=== PATIENT | male | born 1950 | race Two or more races ===

== ENCOUNTER 2019-07-07 11:55 | Inpatient (IN) | payer MEDICAID ==
[~2019-07-07] VITALS: Ht 149.9 cm; Wt 59.9 kg
[2019-07-07 12:48] LABS: HEMATOCRIT. 37.7 % (42.0-52.0); HEMOGLOBIN. 12.3 g/dL (14.0-18.0); MEAN CORPUSCULAR HEMOGLOBIN 26.4 pg (28.0-32.0); MEAN PLATELET VOLUME 7.4 fl (7.4-10.4); PLATELET 191 x1000/uL (130-400); RED BLOOD CELL COUNT 4.65 mill/uL (4.7-6.1); RED CELL DISTRIBUTION WIDTH 18.5 % (11.6-14.6)
[2019-07-07 12:56] LABS: CHLORIDE 99 mEq/L (98-107)
[2019-07-07 13:38] LABS: NUCLEATED RED BLOOD CELLS 1 /100 WBC
[2019-07-07 13:39] LABS: PLATELET ESTIMATE NORMAL
[2019-07-07] MEDS ORDERED: IPRATROPIUM BROMIDE (0.02%) 0.5MG/2.5ML NEB HHN STA (13:57)
[2019-07-07] MEDS ORDERED: ALBUTEROL (0.083%) 2.5MG/3ML NEB HHN STA (13:57)
[2019-07-07] MEDS ORDERED: METHYLPREDNISOLONE SOD SUCC 125 MG/2 ML VIAL IV STA (13:57)
[2019-07-07] MEDS ORDERED: IPRATROPIUM BROMIDE (0.02%) 0.5MG/2.5ML NEB ONE (14:41)
[2019-07-07] MEDS ORDERED: ALBUTEROL (0.5%) 2.5MG/0.5ML NEB HHN ONE (14:41)
[2019-07-07] MEDS ORDERED: CLONIDINE 0.1MG TABLET PO PRN (15:30)
[2019-07-07] MEDS ORDERED: METHYLPREDNISOLONE SOD SUCC 125 MG/2 ML VIAL IV SCH ×2 (15:30)
[2019-07-07] MEDS ORDERED: IPRATROPIUM/ALBUTEROL 0.5-3(2.5)MG/3ML NEB HHN PRN (15:30)
[2019-07-07] MEDS ORDERED: ONDANSETRON HCL 4MG/2ML INJ IV PRN (15:30)
[2019-07-07] MEDS ORDERED: ACETAMINOPHEN 325MG TABLET PO PRN (15:30)
[2019-07-07] MEDS ORDERED: PIPERACILLIN/TAZ 3.375G PREMIX 50 ML IV SCH (15:35)
[2019-07-07 15:55] LABS: PHOSPHORUS 3.4 mg/dL (2.5-4.9)
[2019-07-07 17:00] VITALS: BP 105/71
[2019-07-07 18:20] LABS: HEPATITIS B SURFACE ANTIGEN NEGATIVE
[2019-07-07] MEDS ORDERED: SODIUM CHLORIDE 10% FOR INH 15ML VIAL NEB INH NR (18:30)
[2019-07-07] MEDS: PREDNISONE 20MG TABLET PO SCH (18:57)
[2019-07-07] MEDS: SODIUM CHLORIDE 0.9% 1,000 ML IV SCH (18:57)
[2019-07-07] MEDS: ENOXAPARIN 30MG/0.3ML SYR SUBCUT SCH (18:58)
[2019-07-07] MEDS ORDERED: AZITHROMYCIN 500 MG in DEXT 5% WATER 250 ML IV SCH (19:00)
[2019-07-07 19:50] LABS: HEPATITIS A AB IGM Equiv (NEGATIVE)
[2019-07-07 20:00] VITALS: BP 100/73
[2019-07-07] MEDS: IPRATROPIUM/ALBUTEROL 0.5-3(2.5)MG/3ML NEB HHN SCH (21:42)
[2019-07-07] MEDS: CEFEPIME 1,000 MG in DEXTROSE 5% WATER 50 ML IV SCH (21:46)
[2019-07-07 23:52] LABS: CLARITY URINE CLEAR (CLEAR); COLOR URINE YELLOW (YELLOW); KETONES URINE NEGATIVE (NEGATIVE); LEUKOCYTE ESTERASE URINE NEGATIVE (NEGATIVE); NITRITE URINE NEGATIVE (NEGATIVE); OCCULT BLOOD URINE NEGATIVE (NEGATIVE); PROTEIN URINE 1+ (NEGATIVE); SPECIFIC GRAVITY URINE 1.021 (1.005-1.030); UROBILINOGEN URINE 0.2 E.U./dL (0.2-1.0)
[2019-07-08] VITALS: BP 95/64
[2019-07-08] MEDS ORDERED: PIPERACILLIN/TAZ 3.375G PREMIX 50 ML IV SCH
[2019-07-08 00:35] LABS: *AMPHETAMINES SCREEN URINE NEGATIVE (NEGATIVE); *BARBITURATES SCREEN URINE NEGATIVE (NEGATIVE); *BENZODIAZEPINES SCREEN URINE NEGATIVE (NEGATIVE); *COCAINE SCREEN URINE NEGATIVE (NEGATIVE)
[2019-07-08 00:36] LABS: CANNABINOID URINE SCREEN NEGATIVE (NEGATIVE); METHADONE URINE SCREEN NEGATIVE (NEGATIVE); OPIATES URINE SCREEN PRESUMTIVE POSITIVE (NEGATIVE); PHENCYCLIDINE URINE SCREEN NEGATIVE (NEGATIVE)
[2019-07-08] MEDS: IPRATROPIUM/ALBUTEROL 0.5-3(2.5)MG/3ML NEB HHN SCH ×5 (01:07→20:43)
[2019-07-08] MEDS ORDERED: IPRA3AMP31 NEB (04:31)
[2019-07-08] MEDS ORDERED: BISA10SU62 RC (04:31)
[2019-07-08] MEDS ORDERED: TOPUD PO (04:31)
[2019-07-08] MEDS ORDERED: DILT30TA38 PO (04:31)
[2019-07-08] MEDS ORDERED: GUAI600T26 MT (04:31)
[2019-07-08] MEDS ORDERED: FAMO-135 PO (04:31)
[2019-07-08] MEDS ORDERED: APIX5TAB MT (04:31)
[2019-07-08] MEDS ORDERED: HYDR-3281 PO (04:31)
[2019-07-08] MEDS ORDERED: MELA5TAB19 MT (04:31)
[2019-07-08] MEDS ORDERED: MOM PO (04:31)
[2019-07-08] MEDS ORDERED: ZOLP5TAB2 MT (06:11)
[2019-07-08] MEDS ORDERED: LORA-249 MT (06:11)
[2019-07-08] MEDS ORDERED: MUPI1OIN4 NAS (06:11)
[2019-07-08] MEDS ORDERED: METH40VI35 IJ (06:11)
[2019-07-08] MEDS: SODIUM CHLORIDE 0.9% 1,000 ML IV SCH (06:50)
[2019-07-08 06:56] LABS: PROTHROMBIN TIME 10.7 sec (9.6-11.0)
[2019-07-08 07:07] LABS: HEMATOCRIT. 33.4 % (42.0-52.0); HEMOGLOBIN. 10.6 g/dL (14.0-18.0); MEAN CORPUSCULAR HEMOGLOBIN 25.8 pg (28.0-32.0); MEAN CORPUSCULAR VOLUME 81.6 fL (80.0-94.0); MEAN PLATELET VOLUME 7.8 fl (7.4-10.4); PLATELET 200 x1000/uL (130-400); RED BLOOD CELL COUNT 4.09 mill/uL (4.7-6.1); RED CELL DISTRIBUTION WIDTH 18.7 % (11.6-14.6)
[2019-07-08 07:09] LABS: CHLORIDE 101 mEq/L (98-107)
[2019-07-08 07:16] LABS: LDL CHOLESTEROL 53 mg/dL (5-100)
[2019-07-08 07:18] LABS: HDL CHOLESTEROL 52 mg/dL (40-59)
[2019-07-08] MEDS: ACETYLCYSTEINE 100MG/ML 10% VIAL 4ML INH SCH ×2 (08:03→14:00)
[2019-07-08] MEDS: PREDNISONE 20MG TABLET PO SCH ×2 (08:09→18:22)
[2019-07-08] MEDS: CEFEPIME 1,000 MG in DEXTROSE 5% WATER 50 ML IV SCH ×2 (08:09→21:05)
[2019-07-08 08:23] VITALS: BP 116/74
[2019-07-08 11:41] VITALS: BP 104/64
[2019-07-08 11:41] LABS: PLATELET ESTIMATE NORMAL
[2019-07-08] MEDS ORDERED: DEXTROSE 50% WATER 50ML SYRINGE IV PRN (13:45)
[2019-07-08 16:03] VITALS: BP 112/72
[2019-07-08] MEDS: AZITHROMYCIN 500 MG in DEXT 5% WATER 250 ML IV SCH (16:28)
[2019-07-08] MEDS: BLOOD SUGAR DIAGNOSTIC STRIP TEST SCH ×2 (18:17→21:17)
[2019-07-08] MEDS: ENOXAPARIN 30MG/0.3ML SYR SUBCUT SCH (18:21)
[2019-07-08] MEDS: INSULIN LISPRO 100 UNITS/ML SUBCUT SCH ×2 (18:23→21:33)
[2019-07-08 20:00] VITALS: BP 114/65
[2019-07-09] VITALS: BP 101/65
[2019-07-09] MEDS: ACETYLCYSTEINE 100MG/ML 10% VIAL 4ML INH SCH ×2 (00:33→14:45)
[2019-07-09] MEDS: IPRATROPIUM/ALBUTEROL 0.5-3(2.5)MG/3ML NEB HHN SCH ×4 (01:07→21:37)
[2019-07-09 04:00] VITALS: BP 107/72
[2019-07-09] MEDS: BLOOD SUGAR DIAGNOSTIC STRIP TEST SCH ×4 (07:04→21:00)
[2019-07-09] MEDS: INSULIN LISPRO 100 UNITS/ML SUBCUT SCH ×4 (07:05→22:04)
[2019-07-09 07:11] LABS: HIV SCREEN 4G Non Reactive (Non Reactive)
[2019-07-09 08:00] VITALS: BP 116/74
[2019-07-09] MEDS: PREDNISONE 20MG TABLET PO SCH ×2 (08:18→17:30)
[2019-07-09] MEDS: CEFEPIME 1,000 MG in DEXTROSE 5% WATER 50 ML IV SCH ×2 (08:18→22:03)
[2019-07-09] MEDS: SODIUM CHLORIDE 0.9% 1,000 ML IV SCH ×2 (09:30→22:55)
[2019-07-09 12:00] VITALS: BP 127/85
[2019-07-09] MEDS: AZITHROMYCIN 500 MG in DEXT 5% WATER 250 ML IV SCH (15:55)
[2019-07-09 16:00] VITALS: BP 119/73
[2019-07-09] MEDS: ENOXAPARIN 30MG/0.3ML SYR SUBCUT SCH (17:30)
[2019-07-09 20:00] VITALS: BP 147/70
[2019-07-10] VITALS: BP 144/80
[2019-07-10] MEDS: ACETYLCYSTEINE 100MG/ML 10% VIAL 4ML INH SCH ×2 (01:14→22:38)
[2019-07-10] MEDS: IPRATROPIUM/ALBUTEROL 0.5-3(2.5)MG/3ML NEB HHN SCH ×4 (01:15→22:38)
[2019-07-10 04:00] VITALS: BP 150/71
[2019-07-10] MEDS: BLOOD SUGAR DIAGNOSTIC STRIP TEST SCH ×4 (07:29→21:00)
[2019-07-10] MEDS: INSULIN LISPRO 100 UNITS/ML SUBCUT SCH ×4 (07:30→22:47)
[2019-07-10 07:55] VITALS: BP 125/81
[2019-07-10] MEDS: FAMOTIDINE 20MG TABLET PO SCH (08:10)
[2019-07-10] MEDS: CEFEPIME 1,000 MG in DEXTROSE 5% WATER 50 ML IV SCH ×2 (08:10→22:19)
[2019-07-10] MEDS: PREDNISONE 20MG TABLET PO SCH ×2 (08:10→16:23)
[2019-07-10 11:25] LABS: CHLORIDE 102 mEq/L (98-107)
[2019-07-10 11:26] LABS: HEMATOCRIT. 35.2 % (42.0-52.0); HEMOGLOBIN. 11.6 g/dL (14.0-18.0); MEAN CORPUSCULAR HEMOGLOBIN 26.5 pg (28.0-32.0); MEAN CORPUSCULAR VOLUME 80.8 fL (80.0-94.0); MEAN PLATELET VOLUME 7.2 fl (7.4-10.4); PLATELET 287 x1000/uL (130-400); RED BLOOD CELL COUNT 4.35 mill/uL (4.7-6.1); RED CELL DISTRIBUTION WIDTH 18.5 % (11.6-14.6)
[2019-07-10 12:00] VITALS: BP 125/79
[2019-07-10] MEDS: SODIUM CHLORIDE 0.9% 1,000 ML IV SCH (12:10)
[2019-07-10 12:27] LABS: PLATELET ESTIMATE NORMAL
[2019-07-10 15:43] VITALS: BP 138/77
[2019-07-10] MEDS: AZITHROMYCIN 500 MG in DEXT 5% WATER 250 ML IV SCH (16:21)
[2019-07-10 20:00] VITALS: BP 120/70
[2019-07-10] MEDS: ENOXAPARIN 40MG/0.4ML SYR SUBCUT SCH (22:20)
[2019-07-11] VITALS: BP 131/85
[2019-07-11] MEDS: IPRATROPIUM/ALBUTEROL 0.5-3(2.5)MG/3ML NEB HHN SCH ×4 (03:24→21:19)
[2019-07-11 04:00] VITALS: BP 120/82
[2019-07-11 05:58] LABS: CHLORIDE 102 mEq/L (98-107)
[2019-07-11 06:03] LABS: BASOPHILS % 0.6 % (0.0-2.0); HEMATOCRIT. 34.4 % (42.0-52.0); HEMOGLOBIN. 11.2 g/dL (14.0-18.0); LYMPHOCYTES % 9.2 % (20.0-50.0); MEAN CORPUSCULAR HEMOGLOBIN 26.1 pg (28.0-32.0); MEAN CORPUSCULAR VOLUME 80.4 fL (80.0-94.0); MEAN PLATELET VOLUME 7.5 fl (7.4-10.4); MONOCYTES % 4.9 % (2.0-8.0); NEUTROPHILS % 85.3 % (40.0-76.0); PLATELET 297 x1000/uL (130-400); RED BLOOD CELL COUNT 4.28 mill/uL (4.7-6.1); RED CELL DISTRIBUTION WIDTH 18.4 % (11.6-14.6)
[2019-07-11] MEDS: BLOOD SUGAR DIAGNOSTIC STRIP TEST SCH ×3 (07:20→21:00)
[2019-07-11] MEDS: INSULIN LISPRO 100 UNITS/ML SUBCUT SCH ×5 (07:50→21:00)
[2019-07-11] MEDS: CEFEPIME 1,000 MG in DEXTROSE 5% WATER 50 ML IV SCH ×2 (08:14→21:27)
[2019-07-11] MEDS: PREDNISONE 20MG TABLET PO SCH (08:14)
[2019-07-11] MEDS: FAMOTIDINE 20MG TABLET PO SCH (08:14)
[2019-07-11 08:31] VITALS: BP 114/83
[2019-07-11] MEDS: ACETYLCYSTEINE 100MG/ML 10% VIAL 4ML INH SCH (09:28)
[2019-07-11 12:03] VITALS: BP 126/85
[2019-07-11 16:01] VITALS: BP 110/69
[2019-07-11] MEDS: AZITHROMYCIN 500 MG in DEXT 5% WATER 250 ML IV SCH (17:47)
[2019-07-11] MEDS: SODIUM CHLORIDE 0.9% 1,000 ML IV SCH ×2 (17:48→18:09)
[2019-07-11 20:00] VITALS: BP 117/75
[2019-07-11] MEDS ORDERED: MED4 MT (21:25)
[2019-07-11] MEDS ORDERED: GUAI-735 MT (21:25)
[2019-07-11] MEDS ORDERED: AMOX250S70 MT (21:25)
[2019-07-11] MEDS ORDERED: GUAI600T44 MT (21:26)
[2019-07-11] MEDS: GUAIFENESIN 600MG ER TABLET PO SCH (21:27)
[2019-07-11] MEDS: ENOXAPARIN 40MG/0.4ML SYR SUBCUT SCH (21:27)
[2019-07-12] VITALS: BP 107/64
[2019-07-12 04:00] VITALS: BP 111/70
[2019-07-12] MEDS: SODIUM CHLORIDE 0.9% 1,000 ML IV SCH ×2 (04:10→08:25)
[2019-07-12] MEDS: INSULIN LISPRO 100 UNITS/ML SUBCUT SCH ×2 (07:47→13:25)
[2019-07-12] MEDS: BLOOD SUGAR DIAGNOSTIC STRIP TEST SCH ×2 (07:47→12:20)
[2019-07-12 07:58] VITALS: BP 93/60
[2019-07-12] MEDS: CEFEPIME 1,000 MG in DEXTROSE 5% WATER 50 ML IV SCH (08:16)
[2019-07-12] MEDS: GUAIFENESIN 600MG ER TABLET PO SCH (08:17)
[2019-07-12] MEDS: FAMOTIDINE 20MG TABLET PO SCH (08:17)
[2019-07-12] MEDS: IPRATROPIUM/ALBUTEROL 0.5-3(2.5)MG/3ML NEB HHN SCH (08:58)
[2019-07-12] MEDS ORDERED: PREDNISONE 20MG TABLET PO SCH (09:00)
[2019-07-12 10:47] VITALS: BP 95/65
[2019-07-12 12:00] VITALS: BP 96/65
[2019-07-12] MEDS ORDERED: AZITHROMYCIN 500 MG TABLET PO SCH (16:00)
== END 2019-07-12 14:45 | DRG 720 ==
LOC: ER 11:55 → 6WST 15:00 → EDBEDREQ 15:07 → ENRESERV 15:49 → 6WST 17:35
PROVIDERS: ADMIT Internal Medicine; ATTEND Internal Medicine
DX: A41.9 Sepsis, unspecified organism (principal); J96.20 Acute and chronic respiratory failure, unspecified whether with hypoxia or hypercapnia; E43 Unspecified severe protein-calorie malnutrition; J18.9 Pneumonia, unspecified organism; E87.1 Hypo-osmolality and hyponatremia; D64.9 Anemia, unspecified; E11.9 Type 2 diabetes mellitus without complications; R65.20 Severe sepsis without septic shock; B18.2 Chronic viral hepatitis C; I10 Essential (primary) hypertension; J44.1 Chronic obstructive pulmonary disease with (acute) exacerbation; Z90.49 Acquired absence of other specified parts of digestive tract; K21.9 Gastro-esophageal reflux disease without esophagitis
CPT/HCPCS: 36415; 71045; 71250; 80048; 80053; 80061; 80305; 81003; 82962; 83036; 83735; 83880; 84100; 84145; 84443; 84484; 85025; 86705; 86709; 86803; 87070; 87340; 87389; 87420; 87804; 93005; 93970; 94640; J0456; J0692; J1650; J1815; J2930; J7060; J7131; J7512; J7608

== ENCOUNTER 2019-08-03 18:39 | Inpatient (IN) | payer MEDICAID, MEDICARE ==
[~2019-08-03] VITALS: Ht 167.6 cm; Wt 62.1 kg
[~2019-08-03 18:39] MED LIST: AMOX250S70 MT; APIX5TAB MT; BISA10SU62 RC; DILT30TA38 PO; FAMO-135 PO; GUAI600T44 MT; HYDR-3281 PO; IPRA3AMP31 NEB; LORA-249 MT; MED4 MT; MELA5TAB19 MT; METH40VI35 IJ; MOM PO; MUPI1OIN4 NAS; TOPUD PO; ZOLP5TAB2 MT
[2019-08-03] MEDS ORDERED: SODIUM CHLORIDE 0.9% 1,000 ML IV ONE (19:15)
[2019-08-03] MEDS ORDERED: MORPHINE SULFATE 4 MG/ML CPJ (NOT FOR IM USE) IV STA (19:15)
[2019-08-03] MEDS ORDERED: ONDANSETRON HCL 4MG/2ML INJ IV STA (19:15)
[2019-08-03] MEDS ORDERED: IPRATROPIUM/ALBUTEROL 0.5-3(2.5)MG/3ML NEB HHN ONE (20:15)
[2019-08-03 22:01] LABS: BASOPHILS % 0.7 % (0.0-2.0); EOSINOPHILS % 4.4 % (0.0-5.0); HEMATOCRIT. 33.8 % (42.0-52.0); HEMOGLOBIN. 11.1 g/dL (14.0-18.0); LYMPHOCYTES % 23.4 % (20.0-50.0); MEAN CORPUSCULAR HEMOGLOBIN 25.6 pg (28.0-32.0); MEAN CORPUSCULAR VOLUME 78.3 fL (80.0-94.0); MEAN PLATELET VOLUME 7.1 fl (7.4-10.4); MONOCYTES % 8.7 % (2.0-8.0); NEUTROPHILS % 62.8 % (40.0-76.0); PLATELET 324 x1000/uL (130-400); RED BLOOD CELL COUNT 4.32 mill/uL (4.7-6.1); RED CELL DISTRIBUTION WIDTH 18.5 % (11.6-14.6)
[2019-08-03 22:07] LABS: CHLORIDE 104 mEq/L (98-107)
[2019-08-03 22:11] LABS: ETHANOL BLOOD < 10 mg/dL; PROTHROMBIN TIME 11.3 sec (9.6-11.0)
[2019-08-03 22:35] LABS: CLARITY URINE CLEAR (CLEAR); COLOR URINE YELLOW (YELLOW); KETONES URINE TRACE (NEGATIVE); LEUKOCYTE ESTERASE URINE NEGATIVE (NEGATIVE); NITRITE URINE NEGATIVE (NEGATIVE); OCCULT BLOOD URINE NEGATIVE (NEGATIVE); PH URINE 5.5 (4.5-8.0); PROTEIN URINE TRACE (NEGATIVE); SPECIFIC GRAVITY URINE 1.024 (1.005-1.030); UROBILINOGEN URINE 0.2 E.U./dL (0.2-1.0)
[2019-08-03 22:57] LABS: *AMPHETAMINES SCREEN URINE NEGATIVE (NEGATIVE); *COCAINE SCREEN URINE NEGATIVE (NEGATIVE); CANNABINOID URINE SCREEN NEGATIVE (NEGATIVE); METHADONE URINE SCREEN NEGATIVE (NEGATIVE); OPIATES URINE SCREEN PRESUMTIVE POSITIVE (NEGATIVE); PHENCYCLIDINE URINE SCREEN NEGATIVE (NEGATIVE)
[2019-08-03 22:58] LABS: *BARBITURATES SCREEN URINE NEGATIVE (NEGATIVE); *BENZODIAZEPINES SCREEN URINE NEGATIVE (NEGATIVE)
[2019-08-03] MEDS ORDERED: ONDANSETRON HCL 4MG/2ML INJ IV ONE (23:30)
[2019-08-03] MEDS ORDERED: MORPHINE SULFATE 4 MG/ML CPJ (NOT FOR IM USE) IV ONE (23:30)
[2019-08-04] VITALS (7 sets, daily range): BP systolic 110–195; BP diastolic 72–114
[2019-08-04] MEDS: IPRATROPIUM/ALBUTEROL 0.5-3(2.5)MG/3ML NEB HHN PRN ×2 (03:39→07:55)
[2019-08-04] MEDS ORDERED: DOCUSATE SODIUM 100MG CAPSULE PO PRN (06:45)
[2019-08-04] MEDS ORDERED: MAGNESIUM/ALUMINUM HYDROXIDE/SIMETHICONE 30ML UDC PO PRN (06:45)
[2019-08-04] MEDS ORDERED: CLONIDINE 0.1MG TABLET PO PRN (06:45)
[2019-08-04] MEDS ORDERED: ONDANSETRON HCL 4MG/2ML INJ IV PRN (06:45)
[2019-08-04] MEDS ORDERED: ENOXAPARIN 40MG/0.4ML SYR SUBCUT SCH (09:00)
[2019-08-04] MEDS ORDERED: IPRATROPIUM/ALBUTEROL 0.5-3(2.5)MG/3ML NEB HHN PRN ×2 (09:00→12:00)
[2019-08-04] MEDS: PANTOPRAZOLE SODIUM 40 MG/VIAL IV SCH (09:38)
[2019-08-04] MEDS: HYDROCODONE/ACETAMINOPHEN 5/325MG TABLET PO PRN (09:44)
[2019-08-04] MEDS ORDERED: IPRATROPIUM/ALBUTEROL 0.5-3(2.5)MG/3ML NEB HHN SCH (12:00)
[2019-08-05] VITALS: BP 103/62
[2019-08-05] MEDS: ALBUTEROL 6.7GM HFA INHALER ORI SCH ×3 (02:12→15:50)
[2019-08-05 04:00] VITALS: BP 91/58
[2019-08-05 06:39] LABS: BASOPHILS % 0.8 % (0.0-2.0); EOSINOPHILS % 3.9 % (0.0-5.0); HEMATOCRIT. 33.2 % (42.0-52.0); HEMOGLOBIN. 10.7 g/dL (14.0-18.0); MEAN CORPUSCULAR HEMOGLOBIN 25.1 pg (28.0-32.0); MEAN CORPUSCULAR VOLUME 77.9 fL (80.0-94.0); MEAN PLATELET VOLUME 7.6 fl (7.4-10.4); MONOCYTES % 10.2 % (2.0-8.0); NEUTROPHILS % 66.1 % (40.0-76.0); PLATELET 372 x1000/uL (130-400); RED BLOOD CELL COUNT 4.26 mill/uL (4.7-6.1); RED CELL DISTRIBUTION WIDTH 18.4 % (11.6-14.6)
[2019-08-05 06:45] LABS: CHLORIDE 102 mEq/L (98-107)
[2019-08-05 06:55] LABS: LDL CHOLESTEROL 51 mg/dL (5-100)
[2019-08-05 06:57] LABS: HDL CHOLESTEROL 44 mg/dL (40-59); TOTAL IRON BINDING CAPACITY 246 ug/dL (250-450)
[2019-08-05 08:00] VITALS: BP 133/81
[2019-08-05] MEDS: PANTOPRAZOLE SODIUM 40 MG/VIAL IV SCH (09:27)
[2019-08-05] MEDS: HYDROCODONE/ACETAMINOPHEN 5/325MG TABLET PO PRN (09:38)
[2019-08-05 13:16] VITALS: BP 98/62
[2019-08-05 16:58] VITALS: BP 107/71
[2019-08-05] MEDS: FERROUS SULFATE 325MG TABLET PO SCH (18:44)
[2019-08-05 20:00] VITALS: BP 105/67
[2019-08-06] VITALS: BP 96/60
[2019-08-06 04:00] VITALS: BP 95/61
[2019-08-06 07:05] LABS: CHLORIDE 103 mEq/L (98-107)
[2019-08-06 07:11] LABS: BASOPHILS % 0.9 % (0.0-2.0); EOSINOPHILS % 2.2 % (0.0-5.0); HEMATOCRIT. 32.5 % (42.0-52.0); HEMOGLOBIN. 10.7 g/dL (14.0-18.0); LYMPHOCYTES % 17.7 % (20.0-50.0); MEAN CORPUSCULAR HEMOGLOBIN 25.6 pg (28.0-32.0); MEAN CORPUSCULAR VOLUME 77.3 fL (80.0-94.0); MEAN PLATELET VOLUME 7.4 fl (7.4-10.4); NEUTROPHILS % 69.2 % (40.0-76.0); PLATELET 408 x1000/uL (130-400); RED CELL DISTRIBUTION WIDTH 17.9 % (11.6-14.6)
[2019-08-06 08:00] VITALS: BP 131/89
[2019-08-06] MEDS: FERROUS SULFATE 325MG TABLET PO SCH ×2 (08:20→17:21)
[2019-08-06] MEDS: PANTOPRAZOLE SODIUM 40 MG/VIAL IV SCH (08:20)
[2019-08-06] MEDS: HYDROCODONE/ACETAMINOPHEN 5/325MG TABLET PO PRN (11:30)
[2019-08-06 12:00] VITALS: BP 96/56
[2019-08-06 16:00] VITALS: BP 123/77
[2019-08-06] MEDS ORDERED: AZITHROMYCIN 500 MG TABLET PO NR (18:15)
[2019-08-06] MEDS: HYDROXYCHLOROQUINE SULFATE 200MG TABLET PO SCH (18:49)
[2019-08-06] MEDS: ASCORBIC ACID 500 MG TABLET PO SCH (18:49)
[2019-08-06] MEDS: ZINC SULFATE 220 MG ( 50 ) CAPSULE PO SCH (18:50)
[2019-08-06] MEDS: THIAMINE HCL 100MG TABLET PO SCH (18:50)
[2019-08-06 20:00] VITALS: BP 94/56
[2019-08-06] MEDS: ALBUTEROL 6.7GM HFA INHALER ORI SCH (20:45)
[2019-08-07] VITALS: BP 119/80
[2019-08-07] MEDS: ALBUTEROL 6.7GM HFA INHALER ORI SCH ×6 (00:45→21:30)
[2019-08-07 04:00] VITALS: BP 110/66
[2019-08-07] MEDS: HYDROXYCHLOROQUINE SULFATE 200MG TABLET PO SCH ×2 (05:42→20:25)
[2019-08-07 07:00] LABS: BASOPHILS % 1.1 % (0.0-2.0); HEMATOCRIT. 33.6 % (42.0-52.0); HEMOGLOBIN. 10.9 g/dL (14.0-18.0); LYMPHOCYTES % 16.4 % (20.0-50.0); MEAN CORPUSCULAR HEMOGLOBIN 25.1 pg (28.0-32.0); MEAN CORPUSCULAR VOLUME 77.5 fL (80.0-94.0); MEAN PLATELET VOLUME 7.5 fl (7.4-10.4); MONOCYTES % 10.3 % (2.0-8.0); NEUTROPHILS % 70.2 % (40.0-76.0); PLATELET 440 x1000/uL (130-400); RED BLOOD CELL COUNT 4.34 mill/uL (4.7-6.1)
[2019-08-07 07:09] LABS: CHLORIDE 102 mEq/L (98-107)
[2019-08-07] MEDS: ASCORBIC ACID 500 MG TABLET PO SCH ×2 (08:19→18:05)
[2019-08-07] MEDS: ZINC SULFATE 220 MG ( 50 ) CAPSULE PO SCH (08:19)
[2019-08-07] MEDS: FERROUS SULFATE 325MG TABLET PO SCH ×2 (08:19→18:05)
[2019-08-07] MEDS: PANTOPRAZOLE SODIUM 40 MG/VIAL IV SCH (08:19)
[2019-08-07] MEDS: THIAMINE HCL 100MG TABLET PO SCH ×2 (08:19→18:05)
[2019-08-07 12:00] VITALS: BP 112/58
[2019-08-07 16:00] VITALS: BP 137/96
[2019-08-07] MEDS: AZITHROMYCIN 250 MG TABLET PO SCH (18:06)
[2019-08-07 20:00] VITALS: BP 133/90
[2019-08-08] VITALS: BP 103/71
[2019-08-08] MEDS: ALBUTEROL 6.7GM HFA INHALER ORI SCH ×7 (02:03→21:45)
[2019-08-08 04:00] VITALS: BP 97/62
[2019-08-08 07:54] LABS: EOSINOPHILS % 2.1 % (0.0-5.0); HEMATOCRIT. 34.3 % (42.0-52.0); HEMOGLOBIN. 11.1 g/dL (14.0-18.0); LYMPHOCYTES % 17.7 % (20.0-50.0); MEAN CORPUSCULAR VOLUME 77.6 fL (80.0-94.0); MEAN PLATELET VOLUME 7.6 fl (7.4-10.4); MONOCYTES % 12.4 % (2.0-8.0); NEUTROPHILS % 65.8 % (40.0-76.0); PLATELET 466 x1000/uL (130-400); RED BLOOD CELL COUNT 4.42 mill/uL (4.7-6.1); RED CELL DISTRIBUTION WIDTH 17.8 % (11.6-14.6)
[2019-08-08 08:00] VITALS: BP 86/56
[2019-08-08 08:10] LABS: CHLORIDE 102 mEq/L (98-107)
[2019-08-08] MEDS: FERROUS SULFATE 325MG TABLET PO SCH ×2 (10:22→18:13)
[2019-08-08] MEDS: ASCORBIC ACID 500 MG TABLET PO SCH ×2 (10:22→16:23)
[2019-08-08] MEDS: PANTOPRAZOLE SODIUM 40 MG/VIAL IV SCH (10:22)
[2019-08-08] MEDS: HYDROXYCHLOROQUINE SULFATE 200MG TABLET PO SCH ×2 (10:23→21:36)
[2019-08-08] MEDS: THIAMINE HCL 100MG TABLET PO SCH ×2 (10:23→16:23)
[2019-08-08] MEDS: ZINC SULFATE 220 MG ( 50 ) CAPSULE PO SCH (10:23)
[2019-08-08] MEDS: HYDROCODONE/ACETAMINOPHEN 5/325MG TABLET PO PRN (10:27)
[2019-08-08 12:55] VITALS: BP 88/57
[2019-08-08] MEDS: GUAIFENESIN 200MG/10ML SUGAR FREE UDC PO PRN (13:38)
[2019-08-08] MEDS ORDERED: DIPHENHYDRAMINE 25MG CAPSULE PO PRN (16:15)
[2019-08-08] MEDS: APIXABAN 5 MG TABLET PO SCH (16:23)
[2019-08-08 16:34] VITALS: BP 87/57
[2019-08-08] MEDS: AZITHROMYCIN 250 MG TABLET PO SCH (18:13)
[2019-08-08 20:19] VITALS: BP 98/61
[2019-08-08] MEDS ORDERED: HEPARIN 5000 UNITS/ML VIAL SUBCUT SCH (21:00)
[2019-08-08] MEDS: FAMOTIDINE 20MG/2ML VIAL IV SCH (21:36)
[2019-08-08] MEDS: ACETAMINOPHEN 325MG TABLET PO PRN (23:11)
[2019-08-09] VITALS: BP 103/60
[2019-08-09] MEDS: ALBUTEROL 6.7GM HFA INHALER ORI SCH ×6 (00:30→17:48)
[2019-08-09 04:00] VITALS: BP 103/63
[2019-08-09 08:00] VITALS: BP 99/64
[2019-08-09] MEDS: ASCORBIC ACID 500 MG TABLET PO SCH ×2 (09:47→17:48)
[2019-08-09] MEDS: APIXABAN 5 MG TABLET PO SCH ×2 (09:47→17:47)
[2019-08-09] MEDS: FAMOTIDINE 20MG/2ML VIAL IV SCH ×2 (09:47→20:59)
[2019-08-09] MEDS: HYDROXYCHLOROQUINE SULFATE 200MG TABLET PO SCH ×2 (09:48→20:59)
[2019-08-09] MEDS: THIAMINE HCL 100MG TABLET PO SCH ×2 (09:48→17:47)
[2019-08-09] MEDS: ZINC SULFATE 220 MG ( 50 ) CAPSULE PO SCH (09:48)
[2019-08-09] MEDS: FERROUS SULFATE 325MG TABLET PO SCH ×2 (09:48→17:48)
[2019-08-09] MEDS: GUAIFENESIN 200MG/10ML SUGAR FREE UDC PO PRN (09:57)
[2019-08-09 12:00] VITALS: BP 102/65
[2019-08-09] MEDS ORDERED: GUAIFENESIN/CODEINE 200-20MG/10ML UDC PO NR (13:45)
[2019-08-09 16:00] VITALS: BP 110/67
[2019-08-09 16:25] LABS: COVID-19 PCR RNA DETECTED
[2019-08-09 16:26] LABS: COVID-19 PCR RNA DETECTED
[2019-08-09] MEDS: AZITHROMYCIN 250 MG TABLET PO SCH (17:48)
[2019-08-09 20:00] VITALS: BP 112/73
[2019-08-09] MEDS: GUAIFENESIN/CODEINE 200-20MG/10ML UDC PO PRN (23:15)
[2019-08-10] VITALS: BP 110/71
[2019-08-10] MEDS: ALBUTEROL 6.7GM HFA INHALER ORI SCH
[2019-08-10 04:00] VITALS: BP 108/61
[2019-08-10 06:26] LABS: BASOPHILS % 0.4 % (0.0-2.0); EOSINOPHILS % 2.6 % (0.0-5.0); HEMATOCRIT. 33.5 % (42.0-52.0); HEMOGLOBIN. 10.6 g/dL (14.0-18.0); LYMPHOCYTES % 15.3 % (20.0-50.0); MEAN CORPUSCULAR HEMOGLOBIN 24.6 pg (28.0-32.0); MEAN CORPUSCULAR VOLUME 77.5 fL (80.0-94.0); MEAN PLATELET VOLUME 7.6 fl (7.4-10.4); MONOCYTES % 13.3 % (2.0-8.0); NEUTROPHILS % 68.4 % (40.0-76.0); PLATELET 440 x1000/uL (130-400); RED BLOOD CELL COUNT 4.32 mill/uL (4.7-6.1); RED CELL DISTRIBUTION WIDTH 18.2 % (11.6-14.6)
[2019-08-10 06:29] LABS: CHLORIDE 100 mEq/L (98-107)
[2019-08-10 08:00] VITALS: BP 99/64
[2019-08-10] MEDS: ZINC SULFATE 220 MG ( 50 ) CAPSULE PO SCH (08:57)
[2019-08-10] MEDS: FERROUS SULFATE 325MG TABLET PO SCH ×2 (08:57→18:28)
[2019-08-10] MEDS: FAMOTIDINE 20MG/2ML VIAL IV SCH ×2 (08:58→20:51)
[2019-08-10] MEDS: ASCORBIC ACID 500 MG TABLET PO SCH ×2 (08:58→20:51)
[2019-08-10] MEDS: THIAMINE HCL 100MG TABLET PO SCH ×2 (08:58→18:28)
[2019-08-10] MEDS: HYDROXYCHLOROQUINE SULFATE 200MG TABLET PO SCH (08:58)
[2019-08-10] MEDS: APIXABAN 5 MG TABLET PO SCH ×2 (08:59→18:32)
[2019-08-10 12:00] VITALS: BP 100/74
[2019-08-10] MEDS: GUAIFENESIN 200MG/10ML SUGAR FREE UDC PO PRN (12:43)
[2019-08-10] MEDS: ACETAMINOPHEN 325MG TABLET PO PRN (12:43)
[2019-08-10] MEDS: GUAIFENESIN/CODEINE 200-20MG/10ML UDC PO PRN ×2 (12:50→21:03)
[2019-08-10] MEDS: AZITHROMYCIN 250 MG TABLET PO SCH (18:32)
[2019-08-10 20:00] VITALS: BP 112/72
[2019-08-10] MEDS: FLUTICASONE FUROATE 100 1 INH/CAP ORI SCH (20:51)
[2019-08-11 00:05] VITALS: BP 115/76
[2019-08-11] MEDS: GUAIFENESIN 200MG/10ML SUGAR FREE UDC PO PRN ×2 (00:53→21:03)
[2019-08-11] MEDS: GUAIFENESIN/CODEINE 200-20MG/10ML UDC PO PRN ×4 (03:04→23:47)
[2019-08-11 04:00] VITALS: BP 99/65
[2019-08-11 08:00] VITALS: BP 127/67
[2019-08-11] MEDS: FERROUS SULFATE 325MG TABLET PO SCH ×2 (08:06→17:31)
[2019-08-11] MEDS: THIAMINE HCL 100MG TABLET PO SCH ×2 (08:06→17:32)
[2019-08-11] MEDS: ZINC SULFATE 220 MG ( 50 ) CAPSULE PO SCH (08:06)
[2019-08-11] MEDS: FAMOTIDINE 20MG/2ML VIAL IV SCH ×2 (08:06→21:03)
[2019-08-11] MEDS: ASCORBIC ACID 500 MG TABLET PO SCH ×2 (08:06→17:31)
[2019-08-11] MEDS: APIXABAN 5 MG TABLET PO SCH ×2 (08:07→17:31)
[2019-08-11] MEDS: FLUTICASONE FUROATE 100 1 INH/CAP ORI SCH ×2 (09:00→17:00)
[2019-08-11 12:00] VITALS: BP 99/67
[2019-08-11 16:00] VITALS: BP 107/76
[2019-08-11 20:00] VITALS: BP 98/53
[2019-08-12 00:05] VITALS: BP 101/50
[2019-08-12 04:00] VITALS: BP 115/72
[2019-08-12] MEDS: GUAIFENESIN/CODEINE 200-20MG/10ML UDC PO PRN ×2 (05:51→18:02)
[2019-08-12] MEDS: FERROUS SULFATE 325MG TABLET PO SCH ×2 (08:28→17:57)
[2019-08-12] MEDS: ZINC SULFATE 220 MG ( 50 ) CAPSULE PO SCH (08:28)
[2019-08-12] MEDS: THIAMINE HCL 100MG TABLET PO SCH ×2 (08:28→17:57)
[2019-08-12] MEDS: GUAIFENESIN 200MG/10ML SUGAR FREE UDC PO PRN (08:28)
[2019-08-12] MEDS: ASCORBIC ACID 500 MG TABLET PO SCH ×2 (08:28→17:57)
[2019-08-12] MEDS: APIXABAN 5 MG TABLET PO SCH ×2 (08:28→17:57)
[2019-08-12] MEDS: FAMOTIDINE 20MG/2ML VIAL IV SCH ×2 (08:29→22:33)
[2019-08-12] MEDS: FLUTICASONE FUROATE 100 1 INH/CAP ORI SCH ×2 (08:33→17:56)
[2019-08-12 12:00] VITALS: BP 100/68
[2019-08-12 16:00] VITALS: BP 113/77
[2019-08-12 20:00] VITALS: BP 109/69
[2019-08-13] VITALS: BP 100/65
[2019-08-13] MEDS: GUAIFENESIN/CODEINE 200-20MG/10ML UDC PO PRN ×2 (00:06→23:48)
[2019-08-13 04:00] VITALS: BP 106/71
[2019-08-13 08:00] VITALS: BP 108/67
[2019-08-13] MEDS: APIXABAN 5 MG TABLET PO SCH ×2 (08:47→16:11)
[2019-08-13] MEDS: ZINC SULFATE 220 MG ( 50 ) CAPSULE PO SCH (08:47)
[2019-08-13] MEDS: FERROUS SULFATE 325MG TABLET PO SCH ×2 (08:47→16:55)
[2019-08-13] MEDS: FAMOTIDINE 20MG/2ML VIAL IV SCH ×2 (08:47→23:47)
[2019-08-13] MEDS: FLUTICASONE FUROATE 100 1 INH/CAP ORI SCH ×2 (09:00→16:56)
[2019-08-13] MEDS: GUAIFENESIN 200MG/10ML SUGAR FREE UDC PO PRN ×2 (09:14→17:52)
[2019-08-13 12:00] VITALS: BP 102/71
[2019-08-13 16:00] VITALS: BP 101/75
[2019-08-13] MEDS: METHYLPREDNISOLONE SOD SUCC 40 MG/ML VIAL IV SCH (17:53)
[2019-08-13 20:00] VITALS: BP 104/77
[2019-08-14] VITALS: BP 98/60
[2019-08-14 04:00] VITALS: BP 105/68
[2019-08-14] MEDS: GUAIFENESIN 200MG/10ML SUGAR FREE UDC PO PRN (06:18)
[2019-08-14 08:00] VITALS: BP 102/69
[2019-08-14] MEDS: FAMOTIDINE 20MG/2ML VIAL IV SCH (08:24)
[2019-08-14] MEDS: APIXABAN 5 MG TABLET PO SCH (08:24)
[2019-08-14] MEDS: ZINC SULFATE 220 MG ( 50 ) CAPSULE PO SCH (08:24)
[2019-08-14] MEDS: FERROUS SULFATE 325MG TABLET PO SCH (08:25)
[2019-08-14] MEDS: GUAIFENESIN/CODEINE 200-20MG/10ML UDC PO PRN (08:25)
[2019-08-14] MEDS: METHYLPREDNISOLONE SOD SUCC 40 MG/ML VIAL IV SCH (08:25)
[2019-08-14] MEDS: FLUTICASONE FUROATE 100 1 INH/CAP ORI SCH (08:34)
[2019-08-14 12:00] VITALS: BP 119/68
[2019-08-14 13:54] VITALS: BP 107/71
[2019-08-14 16:00] VITALS: BP 108/75
== END 2019-08-14 16:59 | DRG 252 ==
LOC: ER 18:39 → EDBEDREQ 23:21 → EDBEDREQTM 23:21 → ENRESERV 08-04 02:26 → 5WST 08-04 02:50 → 7WST 08-04 12:20
PROVIDERS: ADMIT Family Medicine Adult Medicine; ATTEND Family Medicine Adult Medicine
DX: K94.09 Other complications of colostomy (principal); A41.89 Other specified sepsis; U07.1 COVID-19; J96.01 Acute respiratory failure with hypoxia; E46 Unspecified protein-calorie malnutrition; J12.89 Other viral pneumonia; I48.20 Chronic atrial fibrillation, unspecified; Z99.81 Dependence on supplemental oxygen; J44.0 Chronic obstructive pulmonary disease with (acute) lower respiratory infection; K92.2 Gastrointestinal hemorrhage, unspecified; B19.20 Unspecified viral hepatitis C without hepatic coma; J44.1 Chronic obstructive pulmonary disease with (acute) exacerbation; D50.9 Iron deficiency anemia, unspecified; I10 Essential (primary) hypertension; K21.9 Gastro-esophageal reflux disease without esophagitis; M47.9 Spondylosis, unspecified; D72.821 Monocytosis (symptomatic); B97.89 Other viral agents as the cause of diseases classified elsewhere; R61 Generalized hyperhidrosis; K80.80 Other cholelithiasis without obstruction; J20.9 Acute bronchitis, unspecified; Z85.038 Personal history of other malignant neoplasm of large intestine; Z86.711 Personal history of pulmonary embolism; Z79.01 Long term (current) use of anticoagulants; Z87.891 Personal history of nicotine dependence; Z79.891 Long term (current) use of opiate analgesic; Z79.1 Long term (current) use of non-steroidal anti-inflammatories (NSAID); Z79.899 Other long term (current) drug therapy; Z90.49 Acquired absence of other specified parts of digestive tract; Z68.22 Body mass index [BMI] 22.0-22.9, adult; Z82.49 Family history of ischemic heart disease and other diseases of the circulatory system; Z82.3 Family history of stroke
CPT/HCPCS: 36415; 71045; 74176; 80048; 80053; 80061; 80305; 80320; 81003; 82728; 83540; 83550; 83605; 83880; 84443; 84484; 85025; 93005; 94640; 97116; 97162; 97166; 97530; 99285; C9113; J1650; J2270; J2405; J2920; J3490; J7030; G0480

== ENCOUNTER 2019-09-05 21:56 | Inpatient (IN) | payer MEDICAID ==
[~2019-09-05] VITALS: Ht 172.7 cm; Wt 62.1 kg
[~2019-09-05 21:56] MED LIST changes: -AMOX250S70 MT; -DILT30TA38 PO; -MED4 MT; -MELA5TAB19 MT; -METH40VI35 IJ; -MUPI1OIN4 NAS; -ZOLP5TAB2 MT
[2019-09-05] MEDS ORDERED: SODIUM CHLORIDE 0.9% 1,000 ML IV ONE (23:17)
[2019-09-05 23:45] LABS: BASOPHILS % 0.5 % (0.0-2.0); EOSINOPHILS % 7.5 % (0.0-5.0); HEMATOCRIT. 35.3 % (42.0-52.0); HEMOGLOBIN. 11.3 g/dL (14.0-18.0); LYMPHOCYTES % 13.7 % (20.0-50.0); MEAN CORPUSCULAR HEMOGLOBIN 24.7 pg (28.0-32.0); MEAN CORPUSCULAR VOLUME 77.1 fL (80.0-94.0); MEAN PLATELET VOLUME 7.2 fl (7.4-10.4); MONOCYTES % 6.9 % (2.0-8.0); NEUTROPHILS % 71.4 % (40.0-76.0); PLATELET 440 x1000/uL (130-400); RED BLOOD CELL COUNT 4.58 mill/uL (4.7-6.1); RED CELL DISTRIBUTION WIDTH 18.1 % (11.6-14.6)
[2019-09-05 23:52] LABS: INR 1.1; PROTHROMBIN TIME 11.4 sec (9.6-11.0)
[2019-09-05 23:56] LABS: CHLORIDE 99 mEq/L (98-107)
[2019-09-06] MEDS ORDERED: VANCOMYCIN 1 G PREMIX 200 ML IV NR (01:45)
[2019-09-06] MEDS ORDERED: PIPERACILLIN/TAZ 3.375G PREMIX 50 ML IV NR (01:45)
[2019-09-06] MEDS ORDERED: ALBUTEROL 6.7GM HFA INHALER ORI ONE (02:00)
[2019-09-06] MEDS ORDERED: ACETAMINOPHEN 325MG TABLET PO PRN (03:00)
[2019-09-06] MEDS ORDERED: ONDANSETRON HCL 4MG/2ML INJ IV PRN (03:00)
[2019-09-06] MEDS ORDERED: AZITHROMYCIN 500 MG in DEXT 5% WATER 250 ML IV SCH (06:00)
[2019-09-06 08:45] VITALS: BP 152/97
[2019-09-06] MEDS ORDERED: CEFTRIAXONE 1 G PREMIX 50 ML IV SCH (09:00)
[2019-09-06] MEDS: HEPARIN 5000 UNITS/ML VIAL SUBCUT SCH ×2 (10:00→21:02)
[2019-09-06] MEDS: CEFTRIAXONE 1 G PREMIX 50 ML IV SCH (15:33)
[2019-09-06] MEDS: FLUTICASONE FUROATE 100 1 INH/CAP ORI SCH ×2 (16:53→21:05)
[2019-09-06 20:00] VITALS: BP 126/61
[2019-09-06] MEDS: ALBUTEROL 6.7GM HFA INHALER ORI SCH (22:22)
[2019-09-07] VITALS: BP 116/64
[2019-09-07 04:00] VITALS: BP_SYST 118; BP_SYST 147; BP_DIAS 62; BP_DIAS 63
[2019-09-07] MEDS: ALBUTEROL 6.7GM HFA INHALER ORI SCH ×3 (04:58→23:20)
[2019-09-07 07:26] LABS: CHLORIDE 93 mEq/L (98-107)
[2019-09-07 07:30] LABS: BASOPHILS % 0.4 % (0.0-2.0); EOSINOPHILS % 2.5 % (0.0-5.0); HEMATOCRIT. 30.9 % (42.0-52.0); HEMOGLOBIN. 10.1 g/dL (14.0-18.0); LYMPHOCYTES % 14.2 % (20.0-50.0); MEAN CORPUSCULAR HEMOGLOBIN 25.2 pg (28.0-32.0); MEAN CORPUSCULAR VOLUME 77.1 fL (80.0-94.0); MEAN PLATELET VOLUME 7.3 fl (7.4-10.4); MONOCYTES % 6.9 % (2.0-8.0); PLATELET 358 x1000/uL (130-400); RED CELL DISTRIBUTION WIDTH 17.1 % (11.6-14.6)
[2019-09-07] MEDS ORDERED: AZITHROMYCIN 500 MG in DEXT 5% WATER 250 ML IV SCH (09:00)
[2019-09-07] MEDS: FLUTICASONE FUROATE 100 1 INH/CAP ORI SCH ×2 (09:00→21:20)
[2019-09-07] MEDS: CEFTRIAXONE 1 G PREMIX 50 ML IV SCH (10:46)
[2019-09-07] MEDS: HEPARIN 5000 UNITS/ML VIAL SUBCUT SCH ×2 (10:46→21:06)
[2019-09-07] MEDS: METHYLPREDNISOLONE SOD SUCC 40 MG/ML VIAL IV SCH (12:19)
[2019-09-07] MEDS ORDERED: RISPERIDONE 0.5MG TABLET PO PRN (13:45)
[2019-09-07] MEDS ORDERED: LORAZEPAM 0.5MG TABLET PO PRN (13:45)
[2019-09-07] MEDS: SODIUM CHLORIDE 45ML SPRAY NS PRN ×2 (17:20→21:31)
[2019-09-07] MEDS: AZITHROMYCIN 500 MG in DEXT 5% WATER 250 ML IV SCH (17:20)
[2019-09-07 20:00] VITALS: BP 116/76
[2019-09-08] VITALS: BP 105/57
[2019-09-08 04:00] VITALS: BP 101/71
[2019-09-08] MEDS: ALBUTEROL 6.7GM HFA INHALER ORI SCH ×4 (05:50→23:48)
[2019-09-08] MEDS: SODIUM CHLORIDE 45ML SPRAY NS PRN ×2 (05:52→20:21)
[2019-09-08 06:29] LABS: BASOPHILS % 0.9 % (0.0-2.0); EOSINOPHILS % 0.1 % (0.0-5.0); HEMATOCRIT. 31.9 % (42.0-52.0); HEMOGLOBIN. 10.4 g/dL (14.0-18.0); LYMPHOCYTES % 24.2 % (20.0-50.0); MEAN CORPUSCULAR HEMOGLOBIN 24.8 pg (28.0-32.0); MEAN CORPUSCULAR VOLUME 76.3 fL (80.0-94.0); MEAN PLATELET VOLUME 7.8 fl (7.4-10.4); MONOCYTES % 10.5 % (2.0-8.0); NEUTROPHILS % 64.3 % (40.0-76.0); PLATELET 365 x1000/uL (130-400); RED BLOOD CELL COUNT 4.18 mill/uL (4.7-6.1); RED CELL DISTRIBUTION WIDTH 17.7 % (11.6-14.6)
[2019-09-08 07:09] LABS: CHLORIDE 93 mEq/L (98-107)
[2019-09-08 08:00] VITALS: BP 106/58
[2019-09-08] MEDS: CEFTRIAXONE 1 G PREMIX 50 ML IV SCH (09:15)
[2019-09-08] MEDS: HEPARIN 5000 UNITS/ML VIAL SUBCUT SCH ×2 (09:16→20:17)
[2019-09-08] MEDS: METHYLPREDNISOLONE SOD SUCC 40 MG/ML VIAL IV SCH (09:18)
[2019-09-08] MEDS: AZITHROMYCIN 500 MG in DEXT 5% WATER 250 ML IV SCH (09:18)
[2019-09-08] MEDS: FLUTICASONE FUROATE 100 1 INH/CAP ORI SCH ×2 (09:47→20:18)
[2019-09-08 12:16] VITALS: BP 100/62
[2019-09-08 16:28] VITALS: BP 112/61
[2019-09-08 20:00] VITALS: BP 111/57
[2019-09-09 00:22] VITALS: BP 113/73
[2019-09-09 04:00] VITALS: BP 125/76
[2019-09-09] MEDS: ALBUTEROL 6.7GM HFA INHALER ORI SCH ×3 (05:09→18:36)
[2019-09-09 05:46] LABS: BASOPHILS % 0.2 % (0.0-2.0); EOSINOPHILS % 0.3 % (0.0-5.0); HEMATOCRIT. 33.4 % (42.0-52.0); HEMOGLOBIN. 10.8 g/dL (14.0-18.0); LYMPHOCYTES % 27.8 % (20.0-50.0); MEAN CORPUSCULAR HEMOGLOBIN 24.8 pg (28.0-32.0); MEAN CORPUSCULAR VOLUME 76.5 fL (80.0-94.0); MEAN PLATELET VOLUME 7.4 fl (7.4-10.4); MONOCYTES % 11.1 % (2.0-8.0); NEUTROPHILS % 60.6 % (40.0-76.0); PLATELET 408 x1000/uL (130-400); RED BLOOD CELL COUNT 4.37 mill/uL (4.7-6.1); RED CELL DISTRIBUTION WIDTH 17.4 % (11.6-14.6)
[2019-09-09 05:47] LABS: CHLORIDE 95 mEq/L (98-107)
[2019-09-09 08:00] VITALS: BP 92/60
[2019-09-09] MEDS: FLUTICASONE FUROATE 100 1 INH/CAP ORI SCH ×2 (09:00→21:02)
[2019-09-09] MEDS: AZITHROMYCIN 500 MG in DEXT 5% WATER 250 ML IV SCH (09:00)
[2019-09-09] MEDS: CEFTRIAXONE 1 G PREMIX 50 ML IV SCH (09:00)
[2019-09-09] MEDS: HEPARIN 5000 UNITS/ML VIAL SUBCUT SCH ×2 (09:02→21:02)
[2019-09-09] MEDS: METHYLPREDNISOLONE SOD SUCC 40 MG/ML VIAL IV SCH (09:02)
[2019-09-09 12:00] VITALS: BP 97/69
[2019-09-09 16:00] VITALS: BP 109/67
[2019-09-09 19:53] VITALS: BP 117/70
[2019-09-10] VITALS: BP 103/70
[2019-09-10 04:00] VITALS: BP 110/72
[2019-09-10] MEDS: ALBUTEROL 6.7GM HFA INHALER ORI SCH ×5 (05:27→23:57)
[2019-09-10 06:24] LABS: BASOPHILS % 1.1 % (0.0-2.0); EOSINOPHILS % 0.3 % (0.0-5.0); HEMATOCRIT. 33.3 % (42.0-52.0); HEMOGLOBIN. 10.5 g/dL (14.0-18.0); LYMPHOCYTES % 24.7 % (20.0-50.0); MEAN CORPUSCULAR HEMOGLOBIN 24.3 pg (28.0-32.0); MEAN CORPUSCULAR VOLUME 76.7 fL (80.0-94.0); MEAN PLATELET VOLUME 6.9 fl (7.4-10.4); MONOCYTES % 8.8 % (2.0-8.0); NEUTROPHILS % 65.1 % (40.0-76.0); PLATELET 393 x1000/uL (130-400); RED BLOOD CELL COUNT 4.34 mill/uL (4.7-6.1); RED CELL DISTRIBUTION WIDTH 18.1 % (11.6-14.6)
[2019-09-10 06:32] LABS: CHLORIDE 99 mEq/L (98-107)
[2019-09-10 08:57] VITALS: BP 108/64
[2019-09-10] MEDS: HEPARIN 5000 UNITS/ML VIAL SUBCUT SCH ×2 (09:24→20:40)
[2019-09-10] MEDS: CEFTRIAXONE 1 G PREMIX 50 ML IV SCH (09:24)
[2019-09-10] MEDS: METHYLPREDNISOLONE SOD SUCC 40 MG/ML VIAL IV SCH (09:24)
[2019-09-10] MEDS: FLUTICASONE FUROATE 100 1 INH/CAP ORI SCH ×2 (09:24→20:46)
[2019-09-10] MEDS: AZITHROMYCIN 500 MG in DEXT 5% WATER 250 ML IV SCH (11:22)
[2019-09-10] MEDS: SODIUM CHLORIDE 45ML SPRAY NS PRN (11:53)
[2019-09-10 12:20] VITALS: BP 102/64
[2019-09-10 16:00] VITALS: BP 116/68
[2019-09-10 20:00] VITALS: BP 109/71
[2019-09-11] VITALS: BP 109/66
[2019-09-11 04:00] VITALS: BP 112/71
[2019-09-11] MEDS: ALBUTEROL 6.7GM HFA INHALER ORI SCH ×3 (06:00→18:21)
[2019-09-11 08:00] VITALS: BP 121/70
[2019-09-11] MEDS: METHYLPREDNISOLONE SOD SUCC 40 MG/ML VIAL IV SCH (08:16)
[2019-09-11] MEDS: AZITHROMYCIN 500 MG in DEXT 5% WATER 250 ML IV SCH (08:17)
[2019-09-11] MEDS: HEPARIN 5000 UNITS/ML VIAL SUBCUT SCH ×2 (08:18→21:29)
[2019-09-11] MEDS: FLUTICASONE FUROATE 100 1 INH/CAP ORI SCH ×2 (08:48→21:25)
[2019-09-11 09:27] LABS: BASOPHILS % 0.4 % (0.0-2.0); EOSINOPHILS % 1.1 % (0.0-5.0); HEMATOCRIT. 34.9 % (42.0-52.0); HEMOGLOBIN. 11.1 g/dL (14.0-18.0); LYMPHOCYTES % 26.2 % (20.0-50.0); MEAN CORPUSCULAR HEMOGLOBIN 24.6 pg (28.0-32.0); MEAN CORPUSCULAR VOLUME 76.9 fL (80.0-94.0); MEAN PLATELET VOLUME 7.4 fl (7.4-10.4); MONOCYTES % 9.2 % (2.0-8.0); NEUTROPHILS % 63.1 % (40.0-76.0); PLATELET 356 x1000/uL (130-400); RED BLOOD CELL COUNT 4.53 mill/uL (4.7-6.1); RED CELL DISTRIBUTION WIDTH 18.4 % (11.6-14.6)
[2019-09-11 09:29] LABS: CHLORIDE 100 mEq/L (98-107)
[2019-09-11 12:00] VITALS: BP 96/61
[2019-09-11 16:00] VITALS: BP 94/64
[2019-09-11 20:00] VITALS: BP 102/66
[2019-09-12] VITALS: BP 101/66
[2019-09-12 04:00] VITALS: BP 112/73
[2019-09-12] MEDS: ALBUTEROL 6.7GM HFA INHALER ORI SCH ×2 (06:10→11:50)
[2019-09-12] MEDS: METHYLPREDNISOLONE SOD SUCC 40 MG/ML VIAL IV SCH (08:10)
[2019-09-12] MEDS: HEPARIN 5000 UNITS/ML VIAL SUBCUT SCH (08:11)
[2019-09-12] MEDS: FLUTICASONE FUROATE 100 1 INH/CAP ORI SCH (08:30)
[2019-09-12 14:16] VITALS: BP 109/75
== END 2019-09-12 15:00 | DRG 720 ==
LOC: ER 21:56 → 7EST 09-06 02:57 → ENRESERV 09-06 07:46 → 7EST 09-06 08:58 → 7WST 09-10 04:10
PROVIDERS: ADMIT Internal Medicine; ATTEND Internal Medicine
DX: A41.89 Other specified sepsis (principal); U07.1 COVID-19; J96.01 Acute respiratory failure with hypoxia; E46 Unspecified protein-calorie malnutrition; J44.0 Chronic obstructive pulmonary disease with (acute) lower respiratory infection; C18.9 Malignant neoplasm of colon, unspecified; D64.9 Anemia, unspecified; B97.89 Other viral agents as the cause of diseases classified elsewhere; D72.810 Lymphocytopenia; F41.9 Anxiety disorder, unspecified; I10 Essential (primary) hypertension; J12.89 Other viral pneumonia; J44.1 Chronic obstructive pulmonary disease with (acute) exacerbation; J20.9 Acute bronchitis, unspecified; J45.909 Unspecified asthma, uncomplicated; K21.9 Gastro-esophageal reflux disease without esophagitis; Z79.01 Long term (current) use of anticoagulants; Z86.711 Personal history of pulmonary embolism; Z68.20 Body mass index [BMI] 20.0-20.9, adult; Z87.01 Personal history of pneumonia (recurrent); Z93.3 Colostomy status; Z99.81 Dependence on supplemental oxygen; Z79.891 Long term (current) use of opiate analgesic; Z90.49 Acquired absence of other specified parts of digestive tract; Z79.899 Other long term (current) drug therapy
CPT/HCPCS: 36415; 71045; 80053; 83605; 83735; 83880; 84145; 84484; 85025; 93005; 99285; J0456; J0696; J1644; J2543; J2920; J3370; J7030; J7060; U0003-CS

== ENCOUNTER 2019-11-16 17:16 | Emergency (ER) | payer MEDICARE, MEDICAID ==
[~2019-11-16] VITALS: Ht 172.7 cm; Wt 60.0 kg
[2019-11-16] MEDS ORDERED: ALBUTEROL (0.083%) 2.5MG/3ML NEB HHN STA (18:33)
[2019-11-16] MEDS ORDERED: IPRATROPIUM BROMIDE (0.02%) 0.5MG/2.5ML NEB HHN STA (18:33)
[2019-11-16 19:01] LABS: BASOPHILS % 0.7 % (0.0-2.0); EOSINOPHILS % 12.2 % (0.0-5.0); HEMATOCRIT. 34.1 % (42.0-52.0); HEMOGLOBIN. 10.8 g/dL (14.0-18.0); LYMPHOCYTES % 21.2 % (20.0-50.0); MEAN CORPUSCULAR HEMOGLOBIN 24.1 pg (28.0-32.0); MEAN CORPUSCULAR VOLUME 75.6 fL (80.0-94.0); MEAN PLATELET VOLUME 7.3 fl (7.4-10.4); MONOCYTES % 9.2 % (2.0-8.0); NEUTROPHILS % 56.7 % (40.0-76.0); PLATELET 296 x1000/uL (130-400); RED BLOOD CELL COUNT 4.51 mill/uL (4.7-6.1); RED CELL DISTRIBUTION WIDTH 17.6 % (11.6-14.6)
[2019-11-16 19:04] LABS: CHLORIDE 100 mEq/L (98-107)
[2019-11-16 19:07] LABS: INR 1.1; PROTHROMBIN TIME 11.6 sec (9.6-11.0)
[2019-11-16 23:09] LABS: CLARITY URINE CLEAR (CLEAR); COLOR URINE YELLOW (YELLOW); KETONES URINE NEGATIVE (NEGATIVE); LEUKOCYTE ESTERASE URINE NEGATIVE (NEGATIVE); NITRITE URINE NEGATIVE (NEGATIVE); OCCULT BLOOD URINE 2+ (NEGATIVE); PROTEIN URINE NEGATIVE (NEGATIVE); SPECIFIC GRAVITY URINE 1.021 (1.005-1.030); UROBILINOGEN URINE 0.2 E.U./dL (0.2-1.0)
[2019-11-17] MEDS ORDERED: ALBUTEROL (0.083%) 2.5MG/3ML NEB HHN ONE (01:45)
[2019-11-17 02:49] VITALS: BP 124/76
[2019-11-22] MEDS ORDERED: TAMS-11 PO (12:06)
[2019-11-22] MEDS ORDERED: AMOX1TAB16 MT (12:06)
== END 2019-11-17 02:49 | disposition home or self-care (01) ==
LOC: ER 17:23
DX: N40.1 Benign prostatic hyperplasia with lower urinary tract symptoms (principal); R30.0 Dysuria; K21.9 Gastro-esophageal reflux disease without esophagitis; I10 Essential (primary) hypertension; J44.9 Chronic obstructive pulmonary disease, unspecified; Z99.81 Dependence on supplemental oxygen; Z93.3 Colostomy status
CPT/HCPCS: 36415; 71045; 80053; 81003; 85025; 94640; 99285

== ENCOUNTER 2019-11-22 21:59 | Inpatient (IN) | payer MEDICARE, MEDICAID ==
[~2019-11-22] VITALS: Ht 180.3 cm; Wt 66.3 kg
[~2019-11-22 21:59] MED LIST changes: +AMOX1TAB16 MT; +TAMS-11 PO
[2019-11-22] MEDS ORDERED: SODIUM CHLORIDE 0.9% 1,000 ML IV ONE (23:30)
[2019-11-22] MEDS ORDERED: LORAZEPAM 2MG/ML CPJ IV ONE (23:30)
[2019-11-23] VITALS (7 sets, daily range): BP systolic 102–135; BP diastolic 70–91
[2019-11-23 00:35] LABS: BASOPHILS % 0.5 % (0.0-2.0); CHLORIDE 95 mEq/L (98-107); EOSINOPHILS % 10.4 % (0.0-5.0); HEMATOCRIT. 34.9 % (42.0-52.0); LYMPHOCYTES % 17.8 % (20.0-50.0); MEAN CORPUSCULAR VOLUME 75.7 fL (80.0-94.0); MEAN PLATELET VOLUME 7.2 fl (7.4-10.4); MONOCYTES % 9.2 % (2.0-8.0); NEUTROPHILS % 62.1 % (40.0-76.0); PLATELET 302 x1000/uL (130-400); RED BLOOD CELL COUNT 4.61 mill/uL (4.7-6.1)
[2019-11-23 00:42] LABS: INR 1.2; PROTHROMBIN TIME 12.1 sec (9.6-11.0)
[2019-11-23] MEDS ORDERED: LORAZEPAM 2MG/ML CPJ IV ONE (02:15)
[2019-11-23] MEDS ORDERED: SODIUM CHLORIDE 0.9% 500 ML IV ONE (02:15)
[2019-11-23] MEDS ORDERED: METHYLPREDNISOLONE SOD SUCC 125 MG/2 ML VIAL IV STA (06:36)
[2019-11-23] MEDS ORDERED: ALBUTEROL (0.083%) 2.5MG/3ML NEB HHN STA (06:36)
[2019-11-23] MEDS ORDERED: IPRATROPIUM BROMIDE (0.02%) 0.5MG/2.5ML NEB HHN STA (06:36)
[2019-11-23 07:22] LABS: BG BASE EXCESS 5.4 mmol/L (-2.0-2.0); BG CARBOXYHEMOGLOBIN 0.3 % (0.5-1.5); BG DEOXYHEMOGLOBIN 3.6 % (0.0-5.0); BG FRACTION INSPIRED OXYGEN 28; BG HCO3 ACT 34.9 mmol/L (22.0-26.0); BG METHEMOGLOBIN 0.3 % (0.0-1.5); BG OXYGEN SATURATION 96.4 % (92.0-98.5); BG OXYHEMOGLOBIN 95.8 % (94.0-97.0); BG PCO2 80.9 mmHg (35.0-45.0); BG PH 7.253 (7.350-7.450); BG SAMPLE SITE RIGHT RADIAL; BG TOTAL HEMOGLOBIN 11.8 g/dL (12.0-18.0); BG VENT MODE NASAL CANNULA
[2019-11-23] MEDS: METHYLPREDNISOLONE SOD SUCC 40 MG/ML VIAL IV SCH ×2 (14:12→21:34)
[2019-11-23] MEDS: IPRATROPIUM BROMIDE (0.02%) 0.5MG/2.5ML NEB HHN SCH ×2 (16:09→20:21)
[2019-11-23] MEDS: RIVAROXABAN 20 MG TABLET PO SCH (16:31)
[2019-11-23] MEDS: CEFTRIAXONE 1,000 MG in DEXTROSE 5% WATER 50 ML IV SCH (16:31)
[2019-11-23] MEDS: AZITHROMYCIN 500 MG in DEXT 5% WATER 250 ML IV SCH (16:31)
[2019-11-23] MEDS: GUAIFENESIN 600MG ER TABLET PO SCH (21:34)
[2019-11-24] VITALS (11 sets, daily range): BP systolic 90–120; BP diastolic 58–74
[2019-11-24] MEDS: IPRATROPIUM/ALBUTEROL 0.5-3(2.5)MG/3ML NEB HHN PRN ×2 (00:06→12:40)
[2019-11-24] MEDS: IPRATROPIUM BROMIDE (0.02%) 0.5MG/2.5ML NEB HHN SCH ×4 (02:37→20:10)
[2019-11-24] MEDS: METHYLPREDNISOLONE SOD SUCC 40 MG/ML VIAL IV SCH ×3 (05:17→20:31)
[2019-11-24 06:15] LABS: CHLORIDE 96 mEq/L (98-107)
[2019-11-24 06:24] LABS: BASOPHILS % 0.1 % (0.0-2.0); HEMOGLOBIN. 10.6 g/dL (14.0-18.0); LYMPHOCYTES % 14.3 % (20.0-50.0); MEAN CORPUSCULAR VOLUME 75.1 fL (80.0-94.0); MEAN PLATELET VOLUME 7.3 fl (7.4-10.4); MONOCYTES % 2.2 % (2.0-8.0); NEUTROPHILS % 83.4 % (40.0-76.0); PLATELET 295 x1000/uL (130-400); RED BLOOD CELL COUNT 4.39 mill/uL (4.7-6.1); RED CELL DISTRIBUTION WIDTH 17.4 % (11.6-14.6)
[2019-11-24] MEDS: GUAIFENESIN 600MG ER TABLET PO SCH ×2 (12:29→20:31)
[2019-11-24] MEDS: DILTIAZEM HCL 30MG TABLET PO SCH ×2 (15:45→21:18)
[2019-11-24 15:47] LABS: CLARITY URINE CLEAR (CLEAR); COLOR URINE YELLOW (YELLOW); KETONES URINE NEGATIVE (NEGATIVE); LEUKOCYTE ESTERASE URINE NEGATIVE (NEGATIVE); NITRITE URINE NEGATIVE (NEGATIVE); OCCULT BLOOD URINE NEGATIVE (NEGATIVE); PROTEIN URINE NEGATIVE (NEGATIVE); SPECIFIC GRAVITY URINE 1.017 (1.005-1.030); UROBILINOGEN URINE 0.2 E.U./dL (0.2-1.0)
[2019-11-24] MEDS: AZITHROMYCIN 500 MG in DEXT 5% WATER 250 ML IV SCH (15:47)
[2019-11-24] MEDS: CEFTRIAXONE 1,000 MG in DEXTROSE 5% WATER 50 ML IV SCH (15:47)
[2019-11-24] MEDS: RIVAROXABAN 20 MG TABLET PO SCH (18:11)
[2019-11-25] VITALS (11 sets, daily range): BP systolic 99–131; BP diastolic 65–91
[2019-11-25] MEDS: IPRATROPIUM BROMIDE (0.02%) 0.5MG/2.5ML NEB HHN SCH ×4 (02:02→20:12)
[2019-11-25] MEDS: METHYLPREDNISOLONE SOD SUCC 40 MG/ML VIAL IV SCH ×3 (03:06→19:51)
[2019-11-25] MEDS: DILTIAZEM HCL 30MG TABLET PO SCH ×3 (05:19→21:10)
[2019-11-25 07:03] LABS: HEMATOCRIT. 32.5 % (42.0-52.0); HEMOGLOBIN. 10.4 g/dL (14.0-18.0); MEAN CORPUSCULAR HEMOGLOBIN 23.8 pg (28.0-32.0); MEAN CORPUSCULAR VOLUME 74.7 fL (80.0-94.0); MEAN PLATELET VOLUME 7.6 fl (7.4-10.4); PLATELET 304 x1000/uL (130-400); RED BLOOD CELL COUNT 4.35 mill/uL (4.7-6.1); RED CELL DISTRIBUTION WIDTH 17.4 % (11.6-14.6)
[2019-11-25 07:06] LABS: CHLORIDE 94 mEq/L (98-107)
[2019-11-25] MEDS: GUAIFENESIN 600MG ER TABLET PO SCH ×2 (09:20→21:07)
[2019-11-25] MEDS ORDERED: THROAT LOZENGES-BENZOCAINE/MENTH/CETYLPYRD CL LOZENGES MM PRN (15:15)
[2019-11-25] MEDS ORDERED: ACETAMINOPHEN 650MG/20.3ML UDC PO PRN (15:15)
[2019-11-25] MEDS: AZITHROMYCIN 500 MG TABLET PO SCH (16:30)
[2019-11-25] MEDS: CEFTRIAXONE 1,000 MG in DEXTROSE 5% WATER 50 ML IV SCH (16:30)
[2019-11-25] MEDS: RIVAROXABAN 20 MG TABLET PO SCH (17:32)
[2019-11-26] VITALS (12 sets, daily range): BP systolic 118–158; BP diastolic 66–102
[2019-11-26] MEDS: IPRATROPIUM BROMIDE (0.02%) 0.5MG/2.5ML NEB HHN SCH ×4 (02:08→20:44)
[2019-11-26] MEDS: METHYLPREDNISOLONE SOD SUCC 40 MG/ML VIAL IV SCH ×2 (03:04→12:04)
[2019-11-26] MEDS: DILTIAZEM HCL 30MG TABLET PO SCH ×3 (05:32→21:05)
[2019-11-26 09:07] LABS: PLATELET ESTIMATE NORMAL
[2019-11-26] MEDS: GUAIFENESIN 600MG ER TABLET PO SCH ×2 (09:13→21:05)
[2019-11-26 10:13] LABS: HEMATOCRIT. 35.1 % (42.0-52.0); MEAN CORPUSCULAR HEMOGLOBIN 23.8 pg (28.0-32.0); MEAN CORPUSCULAR VOLUME 75.5 fL (80.0-94.0); MEAN PLATELET VOLUME 7.2 fl (7.4-10.4); PLATELET 316 x1000/uL (130-400); RED BLOOD CELL COUNT 4.64 mill/uL (4.7-6.1); RED CELL DISTRIBUTION WIDTH 18.1 % (11.6-14.6)
[2019-11-26 10:36] LABS: CHLORIDE 96 mEq/L (98-107)
[2019-11-26] MEDS ORDERED: DEXTROSE 50% WATER 50ML SYRINGE IV PRN ×2 (14:00)
[2019-11-26] MEDS: CEFTRIAXONE 1,000 MG in DEXTROSE 5% WATER 50 ML IV SCH (16:05)
[2019-11-26] MEDS: AZITHROMYCIN 500 MG TABLET PO SCH (16:06)
[2019-11-26] MEDS: BLOOD SUGAR DIAGNOSTIC STRIP TEST SCH ×2 (17:18→21:05)
[2019-11-26] MEDS: PREDNISONE 20MG TABLET PO SCH (17:18)
[2019-11-26] MEDS: RIVAROXABAN 20 MG TABLET PO SCH (17:18)
[2019-11-26] MEDS: INSULIN LISPRO 100 UNITS/ML SUBCUT SCH ×2 (17:18→21:08)
[2019-11-26 18:07] LABS: PLATELET ESTIMATE NORMAL
[2019-11-26] MEDS: TRAMADOL 50MG TABLET PO PRN (23:13)
[2019-11-27] VITALS (10 sets, daily range): BP systolic 127–155; BP diastolic 68–94
[2019-11-27] MEDS: IPRATROPIUM BROMIDE (0.02%) 0.5MG/2.5ML NEB HHN SCH ×3 (02:13→14:05)
[2019-11-27] MEDS: DILTIAZEM HCL 30MG TABLET PO SCH ×2 (05:45→13:23)
[2019-11-27] MEDS: TRAMADOL 50MG TABLET PO PRN (05:46)
[2019-11-27 07:22] LABS: BASOPHILS % 0.2 % (0.0-2.0); HEMOGLOBIN. 10.9 g/dL (14.0-18.0); LYMPHOCYTES % 10.7 % (20.0-50.0); MEAN CORPUSCULAR HEMOGLOBIN 23.5 pg (28.0-32.0); MEAN CORPUSCULAR VOLUME 75.6 fL (80.0-94.0); MEAN PLATELET VOLUME 7.3 fl (7.4-10.4); MONOCYTES % 8.2 % (2.0-8.0); NEUTROPHILS % 80.9 % (40.0-76.0); PLATELET 279 x1000/uL (130-400); RED BLOOD CELL COUNT 4.63 mill/uL (4.7-6.1); RED CELL DISTRIBUTION WIDTH 17.8 % (11.6-14.6)
[2019-11-27 07:24] LABS: CHLORIDE 95 mEq/L (98-107)
[2019-11-27] MEDS: INSULIN LISPRO 100 UNITS/ML SUBCUT SCH ×3 (08:00→18:00)
[2019-11-27] MEDS: BLOOD SUGAR DIAGNOSTIC STRIP TEST SCH ×3 (08:05→18:14)
[2019-11-27] MEDS: PREDNISONE 20MG TABLET PO SCH ×2 (08:06→18:15)
[2019-11-27] MEDS: GUAIFENESIN 600MG ER TABLET PO SCH (08:07)
[2019-11-27] MEDS: RIVAROXABAN 20 MG TABLET PO SCH (16:51)
[2019-11-27] MEDS: AZITHROMYCIN 500 MG TABLET PO SCH (16:51)
[2019-11-27] MEDS: CEFTRIAXONE 1,000 MG in DEXTROSE 5% WATER 50 ML IV SCH (16:55)
== END 2019-11-27 20:35 | DRG 871 ==
LOC: ER 22:04 → EDBEDREQ 11-23 08:28 → 5EST 11-23 08:29 → ENRESERV 11-23 08:51
PROVIDERS: ADMIT Internal Medicine; ATTEND Internal Medicine
PROC: 5A09357 Assistance with Respiratory Ventilation, Less than 24 Consecutive Hours, Continuous Positive Airway Pressure (ICD-10-PCS; principal; 2019-11-23)
DX: A41.9 Sepsis, unspecified organism (principal); J96.02 Acute respiratory failure with hypercapnia; I26.99 Other pulmonary embolism without acute cor pulmonale; J44.1 Chronic obstructive pulmonary disease with (acute) exacerbation; E87.2 Acidosis; N39.0 Urinary tract infection, site not specified; I11.0 Hypertensive heart disease with heart failure; I50.9 Heart failure, unspecified; F41.9 Anxiety disorder, unspecified; R68.2 Dry mouth, unspecified; K21.9 Gastro-esophageal reflux disease without esophagitis; Z93.3 Colostomy status; Z86.711 Personal history of pulmonary embolism; Z85.038 Personal history of other malignant neoplasm of large intestine; Z90.49 Acquired absence of other specified parts of digestive tract; Z86.19 Personal history of other infectious and parasitic diseases; Z87.891 Personal history of nicotine dependence; Z99.81 Dependence on supplemental oxygen; Z79.01 Long term (current) use of anticoagulants; Z87.440 Personal history of urinary (tract) infections; Z03.818 Encounter for observation for suspected exposure to other biological agents ruled out; B95.2 Enterococcus as the cause of diseases classified elsewhere
CPT/HCPCS: 36415; 36600; 71045; 80048; 80053; 80061; 81003; 82375; 82805; 82962; 83036; 83735; 83880; 85025; 87070; 87635; 93005; 93306; 94640; 94660; 97162; 97166; 97530; 99291; J0456; J0696; J1815; J2060; J2920; J7030; J7040; J7060; J7512

== ENCOUNTER 2020-01-12 22:33 | Inpatient (IN) | payer MEDICAID, MEDICARE ==
[~2020-01-12] VITALS: Ht 174 cm; Wt 52.2 kg
[2020-01-13] MEDS ORDERED: ASPIRIN 81MG TABLET PO ONE (00:15)
[2020-01-13] MEDS ORDERED: VANCOMYCIN 1 G PREMIX 200 ML IV ONE (00:15)
[2020-01-13] MEDS ORDERED: PIPERACILLIN/TAZ 3.375G PREMIX 50 ML IV ONE (00:15)
[2020-01-13] MEDS ORDERED: ALBUTEROL 6.7GM HFA INHALER ORI ONE ×3 (00:15)
[2020-01-13] MEDS ORDERED: METHYLPREDNISOLONE SOD SUCC 125 MG/2 ML VIAL IV ONE (00:15)
[2020-01-13 00:22] LABS: BASOPHILS % 0.8 % (0.0-2.0); EOSINOPHILS % 2.3 % (0.0-5.0); HEMATOCRIT. 39.5 % (42.0-52.0); HEMOGLOBIN. 12.8 g/dL (14.0-18.0); LYMPHOCYTES % 22.4 % (20.0-50.0); MEAN CORPUSCULAR HEMOGLOBIN 26.2 pg (28.0-32.0); MEAN CORPUSCULAR VOLUME 80.9 fL (80.0-94.0); MEAN PLATELET VOLUME 7.8 fl (7.4-10.4); MONOCYTES % 8.7 % (2.0-8.0); NEUTROPHILS % 65.8 % (40.0-76.0); PLATELET 219 x1000/uL (130-400); RED BLOOD CELL COUNT 4.89 mill/uL (4.7-6.1); RED CELL DISTRIBUTION WIDTH 22.8 % (11.6-14.6)
[2020-01-13 00:24] LABS: CHLORIDE 101 mEq/L (98-107)
[2020-01-13 00:29] LABS: D-DIMER 0.68 mg/L FEU (<0.50); INR 1.1; PARTIAL THROMBOPLASTIN TIME 25.2 sec (23.4-31.0); PROTHROMBIN TIME 11.4 sec (9.6-11.0)
[2020-01-13 01:07] LABS: CLARITY URINE CLEAR (CLEAR); COLOR URINE YELLOW (YELLOW); KETONES URINE NEGATIVE (NEGATIVE); LEUKOCYTE ESTERASE URINE NEGATIVE (NEGATIVE); NITRITE URINE NEGATIVE (NEGATIVE); OCCULT BLOOD URINE NEGATIVE (NEGATIVE); PROTEIN URINE NEGATIVE (NEGATIVE); SPECIFIC GRAVITY URINE 1.023 (1.005-1.030); UROBILINOGEN URINE 0.2 E.U./dL (0.2-1.0)
[2020-01-13] MEDS ORDERED: ENOXAPARIN 60MG/0.6ML SYR SUBCUT ONE (01:15)
[2020-01-13] MEDS ORDERED: IOHEXOL-350 100 ML BOTTLE ONE (03:06)
[2020-01-13] MEDS ORDERED: HYDROCODONE/ACETAMINOPHEN 5/325MG TABLET PO PRN (07:45)
[2020-01-13] MEDS ORDERED: DIPHENHYDRAMINE 50MG/ML VIAL IV PRN (07:45)
[2020-01-13] MEDS ORDERED: NA PHOS,M-B/NA PHOS,DI-BA ENEMA 118ML PR PRN (07:45)
[2020-01-13] MEDS ORDERED: ONDANSETRON HCL 4MG/2ML INJ IV PRN (07:45)
[2020-01-13] MEDS ORDERED: ACETAMINOPHEN 325MG TABLET PO PRN (07:45)
[2020-01-13] MEDS ORDERED: MAGNESIUM/ALUMINUM HYDROXIDE/SIMETHICONE 30ML UDC PO PRN (07:45)
[2020-01-13] MEDS ORDERED: DOCUSATE SODIUM 100MG CAPSULE PO PRN (07:45)
[2020-01-13] MEDS ORDERED: CLONIDINE 0.1MG TABLET PO PRN (07:45)
[2020-01-13 09:00] VITALS: BP 129/86
[2020-01-13] MEDS ORDERED: ENOXAPARIN 40MG/0.4ML SYR SUBCUT SCH (09:00)
[2020-01-13] MEDS: OMEPRAZOLE 20MG CAPSULE EXTENDED RELEASE PO SCH (10:27)
[2020-01-13 11:52] LABS: HEMOGLOBIN 12.4 g/dL (14.0-18.0); MEAN CORPUSCULAR HEMOGLOBIN 25.8 pg (28.0-32.0); PLATELET 225 x1000/uL (130-400); RED BLOOD CELL COUNT 4.82 mill/uL (4.7-6.1); RED CELL DISTRIBUTION WIDTH 22.5 % (11.6-14.6)
[2020-01-13 12:00] VITALS: BP 104/70
[2020-01-13 12:01] LABS: CHLORIDE 98 mEq/L (98-107)
[2020-01-13] MEDS ORDERED: GUAI-453 MT (12:53)
[2020-01-13] MEDS ORDERED: DILT30TA3 PO (12:53)
[2020-01-13] MEDS: BLOOD SUGAR DIAGNOSTIC STRIP TEST SCH ×3 (13:00→21:14)
[2020-01-13] MEDS ORDERED: DEXTROSE 50% WATER 50ML SYRINGE IV PRN (13:00)
[2020-01-13] MEDS ORDERED: CEFTRIAXONE 1 G PREMIX 50 ML IV SCH (13:00)
[2020-01-13] MEDS ORDERED: TRAMADOL 50MG TABLET PO PRN (13:45)
[2020-01-13] MEDS ORDERED: GUAIFENESIN-DM 200MG-20MG/10ML UDC PO PRN (13:45)
[2020-01-13] MEDS: METHYLPREDNISOLONE SOD SUCC 40 MG/ML VIAL IV SCH ×2 (14:04→21:13)
[2020-01-13] MEDS: AZITHROMYCIN 500 MG TABLET PO SCH (14:04)
[2020-01-13] MEDS: INSULIN LISPRO 100 UNITS/ML SUBCUT SCH ×3 (14:31→21:15)
[2020-01-13] MEDS: ALBUTEROL 6.7GM HFA INHALER ORI PRN (14:48)
[2020-01-13 16:00] VITALS: BP 98/79
[2020-01-13] MEDS ORDERED: APIXABAN 2.5 MG TABLET PO SCH (17:00)
[2020-01-13] MEDS: CEFTRIAXONE 1,000 MG in DEXTROSE 5% WATER 50 ML IV SCH (17:09)
[2020-01-13] MEDS: APIXABAN 5 MG TABLET PO SCH (17:09)
[2020-01-13 18:33] VITALS: BP 129/86
[2020-01-13 20:00] VITALS: BP 108/77
[2020-01-13] MEDS ORDERED: APIX5TAB MT (20:22)
[2020-01-13] MEDS ORDERED: PRED10TA23 MT (20:22)
[2020-01-13] MEDS ORDERED: ERGO400T7 PO (20:22)
[2020-01-13] MEDS ORDERED: IPRA3AMP9 HHN (20:22)
[2020-01-13] MEDS ORDERED: TRAZ150T78 MT (20:22)
[2020-01-13] MEDS ORDERED: PNEUMOCOCCAL 23-VAL P-SAC VAC 0.5 ML IM ONE (21:00)
[2020-01-13] MEDS: DILTIAZEM HCL 30MG TABLET PO SCH (21:14)
[2020-01-14] VITALS (7 sets, daily range): BP systolic 99–133; BP diastolic 64–82
[2020-01-14] MEDS: ALBUTEROL 6.7GM HFA INHALER ORI PRN ×3 (02:17→22:06)
[2020-01-14] MEDS: METHYLPREDNISOLONE SOD SUCC 40 MG/ML VIAL IV SCH ×3 (05:24→20:39)
[2020-01-14] MEDS: DILTIAZEM HCL 30MG TABLET PO SCH (05:25)
[2020-01-14 07:04] LABS: BASOPHILS % 0.2 % (0.0-2.0); HEMATOCRIT. 37.2 % (42.0-52.0); HEMOGLOBIN. 11.8 g/dL (14.0-18.0); LYMPHOCYTES % 12.8 % (20.0-50.0); MEAN CORPUSCULAR HEMOGLOBIN 25.3 pg (28.0-32.0); MEAN CORPUSCULAR VOLUME 79.8 fL (80.0-94.0); MEAN PLATELET VOLUME 7.8 fl (7.4-10.4); MONOCYTES % 4.2 % (2.0-8.0); NEUTROPHILS % 82.8 % (40.0-76.0); PLATELET 236 x1000/uL (130-400); RED BLOOD CELL COUNT 4.66 mill/uL (4.7-6.1); RED CELL DISTRIBUTION WIDTH 22.5 % (11.6-14.6)
[2020-01-14 07:07] LABS: CHLORIDE 102 mEq/L (98-107)
[2020-01-14 07:14] LABS: PHOSPHORUS 2.3 mg/dL (2.5-4.9)
[2020-01-14] MEDS: BLOOD SUGAR DIAGNOSTIC STRIP TEST SCH ×4 (07:40→20:44)
[2020-01-14] MEDS: INSULIN LISPRO 100 UNITS/ML SUBCUT SCH ×4 (08:10→20:48)
[2020-01-14] MEDS: AZITHROMYCIN 500 MG TABLET PO SCH (09:08)
[2020-01-14] MEDS: OMEPRAZOLE 20MG CAPSULE EXTENDED RELEASE PO SCH (09:08)
[2020-01-14] MEDS: APIXABAN 5 MG TABLET PO SCH ×2 (09:08→16:52)
[2020-01-14] MEDS: DILTIAZEM HCL 60MG TABLET PO SCH ×2 (13:25→21:04)
[2020-01-14] MEDS: CEFTRIAXONE 1,000 MG in DEXTROSE 5% WATER 50 ML IV SCH (14:20)
[2020-01-14 22:49] LABS: PLATELET ESTIMATE NORMAL
[2020-01-15] VITALS: BP 99/62
[2020-01-15] MEDS: IPRATROPIUM/ALBUTEROL 0.5-3(2.5)MG/3ML NEB NEB PRN ×4 (00:47→22:44)
[2020-01-15 04:00] VITALS: BP 110/66
[2020-01-15] MEDS: METHYLPREDNISOLONE SOD SUCC 40 MG/ML VIAL IV SCH ×2 (05:20→21:06)
[2020-01-15] MEDS: DILTIAZEM HCL 60MG TABLET PO SCH ×3 (05:23→21:05)
[2020-01-15 06:40] LABS: HEMATOCRIT. 35.9 % (42.0-52.0); HEMOGLOBIN. 11.5 g/dL (14.0-18.0); MEAN CORPUSCULAR HEMOGLOBIN 25.7 pg (28.0-32.0); MEAN CORPUSCULAR VOLUME 80.4 fL (80.0-94.0); MEAN PLATELET VOLUME 8.3 fl (7.4-10.4); PLATELET 225 x1000/uL (130-400); RED BLOOD CELL COUNT 4.46 mill/uL (4.7-6.1); RED CELL DISTRIBUTION WIDTH 23.1 % (11.6-14.6)
[2020-01-15] MEDS: BLOOD SUGAR DIAGNOSTIC STRIP TEST SCH ×4 (06:40→21:11)
[2020-01-15] MEDS: INSULIN LISPRO 100 UNITS/ML SUBCUT SCH ×4 (06:40→21:11)
[2020-01-15] MEDS: OMEPRAZOLE 20MG CAPSULE EXTENDED RELEASE PO SCH (06:40)
[2020-01-15 07:23] LABS: CHLORIDE 100 mEq/L (98-107)
[2020-01-15 08:00] VITALS: BP 99/68
[2020-01-15] MEDS: AZITHROMYCIN 500 MG TABLET PO SCH (09:47)
[2020-01-15] MEDS: APIXABAN 5 MG TABLET PO SCH ×2 (09:47→17:23)
[2020-01-15 12:00] VITALS: BP 103/66
[2020-01-15 13:41] LABS: BG CARBOXYHEMOGLOBIN 0.6 % (0.5-1.5); BG DEOXYHEMOGLOBIN 2.4 % (0.0-5.0); BG FRACTION INSPIRED OXYGEN 32; BG METHEMOGLOBIN 0.3 % (0.0-1.5); BG OXYGEN SATURATION 97.6 % (92.0-98.5); BG OXYHEMOGLOBIN 96.7 % (94.0-97.0); BG PCO2 44.1 mmHg (35.0-45.0); BG PO2 93.8 mmHg (75.0-100.0); BG SAMPLE SITE RIGHT RADIAL; BG TOTAL HEMOGLOBIN 12.6 g/dL (12.0-18.0); BG VENT MODE NASAL CANNULA
[2020-01-15 13:54] LABS: PLATELET ESTIMATE NORMAL
[2020-01-15] MEDS: CEFTRIAXONE 1,000 MG in DEXTROSE 5% WATER 50 ML IV SCH (14:31)
[2020-01-15 16:00] VITALS: BP 111/61
[2020-01-15 20:00] VITALS: BP 95/56
[2020-01-16] VITALS (7 sets, daily range): BP systolic 111–128; BP diastolic 61–73
[2020-01-16] MEDS: INSULIN LISPRO 100 UNITS/ML SUBCUT SCH ×4 (06:01→20:42)
[2020-01-16] MEDS: BLOOD SUGAR DIAGNOSTIC STRIP TEST SCH ×4 (06:01→20:19)
[2020-01-16] MEDS: IPRATROPIUM/ALBUTEROL 0.5-3(2.5)MG/3ML NEB NEB PRN ×3 (06:20→21:18)
[2020-01-16] MEDS: DILTIAZEM HCL 60MG TABLET PO SCH ×3 (06:20→22:01)
[2020-01-16 06:32] LABS: HEMATOCRIT. 35.5 % (42.0-52.0); HEMOGLOBIN. 11.4 g/dL (14.0-18.0); MEAN CORPUSCULAR HEMOGLOBIN 25.7 pg (28.0-32.0); PLATELET 200 x1000/uL (130-400); RED BLOOD CELL COUNT 4.43 mill/uL (4.7-6.1); RED CELL DISTRIBUTION WIDTH 22.9 % (11.6-14.6)
[2020-01-16 06:38] LABS: CHLORIDE 102 mEq/L (98-107)
[2020-01-16] MEDS: AZITHROMYCIN 500 MG TABLET PO SCH (08:27)
[2020-01-16] MEDS: APIXABAN 5 MG TABLET PO SCH ×2 (08:27→19:02)
[2020-01-16] MEDS: FAMOTIDINE 20MG TABLET PO SCH ×2 (08:28→20:19)
[2020-01-16] MEDS: METHYLPREDNISOLONE SOD SUCC 40 MG/ML VIAL IV SCH ×2 (08:28→20:19)
[2020-01-16 12:20] LABS: PLATELET ESTIMATE NORMAL
[2020-01-16] MEDS ORDERED: FLUTICASONE/VILANTEROL 200-25 BLST.W.DEV ORI SCH (14:00)
[2020-01-16] MEDS: CEFTRIAXONE 1,000 MG in DEXTROSE 5% WATER 50 ML IV SCH (15:28)
== END 2020-01-16 22:00 | DRG 871 ==
LOC: ER 22:33 → 7WST 01-13 01:23 → CANRESERV 01-13 03:40 → ENRESERV 01-13 03:40 → 5WST 01-14 17:49
PROVIDERS: ADMIT Family Medicine Adult Medicine; ATTEND Family Medicine Adult Medicine
DX: A41.9 Sepsis, unspecified organism (principal); J96.21 Acute and chronic respiratory failure with hypoxia; J96.22 Acute and chronic respiratory failure with hypercapnia; I26.99 Other pulmonary embolism without acute cor pulmonale; E87.1 Hypo-osmolality and hyponatremia; I27.82 Chronic pulmonary embolism; J44.0 Chronic obstructive pulmonary disease with (acute) lower respiratory infection; J44.1 Chronic obstructive pulmonary disease with (acute) exacerbation; J98.11 Atelectasis; I82.411 Acute embolism and thrombosis of right femoral vein; D63.8 Anemia in other chronic diseases classified elsewhere; E11.65 Type 2 diabetes mellitus with hyperglycemia; I11.0 Hypertensive heart disease with heart failure; I50.9 Heart failure, unspecified; J20.9 Acute bronchitis, unspecified; K21.9 Gastro-esophageal reflux disease without esophagitis; N40.0 Benign prostatic hyperplasia without lower urinary tract symptoms; R00.0 Tachycardia, unspecified; Z20.828 Contact with and (suspected) exposure to other viral communicable diseases; Z79.01 Long term (current) use of anticoagulants; Z79.899 Other long term (current) drug therapy; Z82.3 Family history of stroke; Z82.49 Family history of ischemic heart disease and other diseases of the circulatory system; Z85.038 Personal history of other malignant neoplasm of large intestine; Z86.19 Personal history of other infectious and parasitic diseases; Z90.49 Acquired absence of other specified parts of digestive tract; Z93.3 Colostomy status; Z86.718 Personal history of other venous thrombosis and embolism; Z99.81 Dependence on supplemental oxygen; Z87.891 Personal history of nicotine dependence
CPT/HCPCS: 36415; 36600; 71045; 71275; 80048; 80053; 81003; 82375; 82805; 82962; 83036; 83605; 83735; 83880; 84100; 84145; 84484; 85025; 85027; 85379; 87635; 90732; 93005; 93970; 94002; 94640; 97116; 97162; 97166; 99285; J0696; J1650; J1815; J2543; J2920; J2930; J3370; J7060; Q9967

== ENCOUNTER 2020-03-18 12:38 | Inpatient (IN) | payer MEDICARE, MEDICAID ==
[~2020-03-18] VITALS: Ht 170.2 cm; Wt 66.3 kg
[~2020-03-18 12:38] MED LIST changes: -AMOX1TAB16 MT; -BISA10SU62 RC; +ERGO400T7 PO; -FAMO-135 PO; -GUAI600T44 MT; -HYDR-3281 PO; -IPRA3AMP31 NEB; +IPRA3AMP9 HHN; -LORA-249 MT; -MOM PO; +PRED10TA23 MT; -TAMS-11 PO; -TOPUD PO; +TRAZ150T78 MT
[2020-03-18] MEDS ORDERED: METHYLPREDNISOLONE SOD SUCC 125 MG/2 ML VIAL IV ONE (13:45)
[2020-03-18] MEDS ORDERED: ALBUTEROL 6.7GM HFA INHALER ORI ONE (13:45)
[2020-03-18 14:11] LABS: HEMATOCRIT. 42.1 % (42.0-52.0); HEMOGLOBIN. 13.3 g/dL (14.0-18.0); MEAN CORPUSCULAR HEMOGLOBIN 26.5 pg (28.0-32.0); MEAN CORPUSCULAR VOLUME 84.1 fL (80.0-94.0); MEAN PLATELET VOLUME 7.7 fl (7.4-10.4); PLATELET 257 x1000/uL (130-400); RED BLOOD CELL COUNT 5.01 mill/uL (4.7-6.1); RED CELL DISTRIBUTION WIDTH 16.4 % (11.6-14.6)
[2020-03-18 14:13] LABS: CHLORIDE 97 mEq/L (98-107)
[2020-03-18 14:43] LABS: PLATELET ESTIMATE NORMAL
[2020-03-18] MEDS ORDERED: PIPERACILLIN/TAZOBACTAM 3.375GM/50ML PREMIX IV ONE (15:45)
[2020-03-18] MEDS ORDERED: ASPIRIN 81MG TABLET PO NR (16:00)
[2020-03-18] MEDS ORDERED: VANCOMYCIN 1 G PREMIX 200 ML IV NR (16:00)
[2020-03-18] MEDS ORDERED: PIPERACILLIN/TAZ 3.375G PREMIX 50 ML IV NR (17:00)
[2020-03-18] MEDS ORDERED: LORAZEPAM 0.5MG TABLET PO PRN (18:45)
[2020-03-18] MEDS ORDERED: TRAZODONE HCL 50MG TABLET PO PRN (18:45)
[2020-03-18] MEDS ORDERED: ONDANSETRON HCL 4MG/2ML INJ IV PRN (18:45)
[2020-03-18] MEDS ORDERED: GUAIFENESIN 200MG/10ML SUGAR FREE UDC PO PRN (18:45)
[2020-03-18] MEDS ORDERED: AZITHROMYCIN 500 MG in DEXT 5% WATER 250 ML IV SCH (20:00)
[2020-03-18] MEDS ORDERED: IPRATROPIUM/ALBUTEROL 0.5-3(2.5)MG/3ML NEB NEB SCH (20:00)
[2020-03-18] MEDS: METHYLPREDNISOLONE SOD SUCC 125 MG/2 ML VIAL IV SCH (20:43)
[2020-03-18 23:07] VITALS: BP 123/73
[2020-03-18 23:29] VITALS: BP 144/83
[2020-03-19 00:30] VITALS: BP 119/69
[2020-03-19] MEDS: METHYLPREDNISOLONE SOD SUCC 125 MG/2 ML VIAL IV SCH ×4 (01:20→20:06)
[2020-03-19] MEDS: HEPARIN 5000 UNITS/ML VIAL SUBCUT SCH ×3 (01:21→20:06)
[2020-03-19 01:46] LABS: BG BASE EXCESS 7.1 mmol/L (-2.0-2.0); BG CARBOXYHEMOGLOBIN 0.4 % (0.5-1.5); BG DEOXYHEMOGLOBIN 22.1 % (0.0-5.0); BG FRACTION INSPIRED OXYGEN 36; BG HCO3 ACT 34.8 mmol/L (22.0-26.0); BG METHEMOGLOBIN 0.4 % (0.0-1.5); BG OXYGEN SATURATION 77.7 % (92.0-98.5); BG OXYHEMOGLOBIN 77.1 % (94.0-97.0); BG PCO2 64.8 mmHg (35.0-45.0); BG PH 7.348 (7.350-7.450); BG PO2 40.7 mmHg (75.0-100.0); BG TOTAL HEMOGLOBIN 13.1 g/dL (12.0-18.0); BG VENT MODE NASAL CANNULA
[2020-03-19 04:00] VITALS: BP_SYST 112; BP_SYST 123; BP_DIAS 54; BP_DIAS 73
[2020-03-19] MEDS: ALBUTEROL 6.7GM HFA INHALER ORI SCH ×5 (04:25→20:11)
[2020-03-19 07:45] LABS: HEMOGLOBIN. 11.9 g/dL (14.0-18.0); MEAN CORPUSCULAR HEMOGLOBIN 27.4 pg (28.0-32.0); MEAN CORPUSCULAR VOLUME 82.6 fL (80.0-94.0); MEAN PLATELET VOLUME 7.3 fl (7.4-10.4); PLATELET 263 x1000/uL (130-400); RED BLOOD CELL COUNT 4.35 mill/uL (4.7-6.1); RED CELL DISTRIBUTION WIDTH 15.6 % (11.6-14.6)
[2020-03-19 08:00] VITALS: BP 134/78
[2020-03-19 08:48] LABS: CHLORIDE 100 mEq/L (98-107)
[2020-03-19 11:13] LABS: PLATELET ESTIMATE NORMAL
[2020-03-19] MEDS: AZITHROMYCIN 500 MG in DEXT 5% WATER 250 ML IV SCH (11:41)
[2020-03-19 12:00] VITALS: BP 110/67
[2020-03-19] MEDS ORDERED: DEXTROSE 50% WATER 50ML SYRINGE IV PRN (12:00)
[2020-03-19] MEDS: BLOOD SUGAR DIAGNOSTIC STRIP TEST SCH ×3 (12:01→20:28)
[2020-03-19] MEDS: INSULIN LISPRO 100 UNITS/ML SUBCUT SCH ×3 (12:10→20:28)
[2020-03-19] MEDS: CEFTRIAXONE 1,000 MG in DEXTROSE 5% WATER 50 ML IV SCH (18:54)
[2020-03-19] MEDS ORDERED: CEFTRIAXONE 1 G PREMIX 50 ML IV SCH (19:30)
[2020-03-19 20:00] VITALS: BP 110/72
[2020-03-20] VITALS: BP 92/38
[2020-03-20] MEDS: ALBUTEROL 6.7GM HFA INHALER ORI SCH ×6 (00:42→20:00)
[2020-03-20] MEDS: METHYLPREDNISOLONE SOD SUCC 125 MG/2 ML VIAL IV SCH ×3 (00:42→12:17)
[2020-03-20 04:00] VITALS: BP 110/56
[2020-03-20] MEDS: BLOOD SUGAR DIAGNOSTIC STRIP TEST SCH ×4 (06:13→21:00)
[2020-03-20] MEDS: INSULIN LISPRO 100 UNITS/ML SUBCUT SCH ×5 (06:23→21:00)
[2020-03-20] MEDS: ACETAMINOPHEN 325MG TABLET PO PRN (06:28)
[2020-03-20 06:31] LABS: HEMATOCRIT. 36.8 % (42.0-52.0); HEMOGLOBIN. 11.9 g/dL (14.0-18.0); MEAN CORPUSCULAR HEMOGLOBIN 26.7 pg (28.0-32.0); MEAN CORPUSCULAR VOLUME 82.4 fL (80.0-94.0); MEAN PLATELET VOLUME 7.2 fl (7.4-10.4); PLATELET 278 x1000/uL (130-400); RED BLOOD CELL COUNT 4.46 mill/uL (4.7-6.1); RED CELL DISTRIBUTION WIDTH 15.1 % (11.6-14.6)
[2020-03-20 06:46] LABS: CHLORIDE 99 mEq/L (98-107)
[2020-03-20 08:00] VITALS: BP 114/81
[2020-03-20] MEDS: HEPARIN 5000 UNITS/ML VIAL SUBCUT SCH ×2 (09:09→22:41)
[2020-03-20] MEDS: AZITHROMYCIN 500 MG in DEXT 5% WATER 250 ML IV SCH (09:09)
[2020-03-20 12:00] VITALS: BP 110/76
[2020-03-20 13:26] LABS: PLATELET ESTIMATE NORMAL
[2020-03-20] MEDS: FLUTICASONE/VILANTEROL 200-25 BLST.W.DEV ORI SCH (14:29)
[2020-03-20 16:00] VITALS: BP 136/58
[2020-03-20] MEDS: CEFTRIAXONE 1,000 MG in DEXTROSE 5% WATER 50 ML IV SCH (17:32)
[2020-03-20 20:00] VITALS: BP 111/66
[2020-03-21] VITALS: BP 123/75
[2020-03-21 04:00] VITALS: BP 116/85
[2020-03-21] MEDS: ALBUTEROL 6.7GM HFA INHALER ORI SCH ×6 (04:00→22:42)
[2020-03-21] MEDS: BLOOD SUGAR DIAGNOSTIC STRIP TEST SCH ×4 (06:04→21:00)
[2020-03-21] MEDS: INSULIN LISPRO 100 UNITS/ML SUBCUT SCH ×4 (06:04→21:00)
[2020-03-21 07:28] LABS: BASOPHILS % 0.1 % (0.0-2.0); HEMOGLOBIN. 12.2 g/dL (14.0-18.0); LYMPHOCYTES % 10.8 % (20.0-50.0); MEAN CORPUSCULAR HEMOGLOBIN 26.7 pg (28.0-32.0); MEAN CORPUSCULAR VOLUME 83.5 fL (80.0-94.0); MEAN PLATELET VOLUME 7.3 fl (7.4-10.4); MONOCYTES % 7.6 % (2.0-8.0); NEUTROPHILS % 81.5 % (40.0-76.0); PLATELET 255 x1000/uL (130-400); RED BLOOD CELL COUNT 4.56 mill/uL (4.7-6.1); RED CELL DISTRIBUTION WIDTH 15.4 % (11.6-14.6)
[2020-03-21 08:00] VITALS: BP 108/64
[2020-03-21 08:07] LABS: CHLORIDE 101 mEq/L (98-107)
[2020-03-21] MEDS: DEXAMETHASONE 10 MG/ML VIAL IV SCH (08:28)
[2020-03-21] MEDS: AZITHROMYCIN 500 MG in DEXT 5% WATER 250 ML IV SCH (08:28)
[2020-03-21] MEDS: HEPARIN 5000 UNITS/ML VIAL SUBCUT SCH ×2 (08:29→22:43)
[2020-03-21] MEDS: FLUTICASONE/VILANTEROL 200-25 BLST.W.DEV ORI SCH (08:32)
[2020-03-21 12:00] VITALS: BP 117/75
[2020-03-21 16:00] VITALS: BP 114/94
[2020-03-21] MEDS: CEFTRIAXONE 1,000 MG in DEXTROSE 5% WATER 50 ML IV SCH (17:47)
[2020-03-21 20:00] VITALS: BP_SYST 106; BP_SYST 163; BP_DIAS 58; BP_DIAS 89
[2020-03-22 00:05] VITALS: BP 101/50
[2020-03-22] MEDS: ALBUTEROL 6.7GM HFA INHALER ORI SCH ×6 (01:10→21:04)
[2020-03-22 04:00] VITALS: BP 93/57
[2020-03-22] MEDS: INSULIN LISPRO 100 UNITS/ML SUBCUT SCH ×4 (06:07→20:58)
[2020-03-22] MEDS: BLOOD SUGAR DIAGNOSTIC STRIP TEST SCH ×4 (06:07→20:57)
[2020-03-22 06:51] LABS: CHLORIDE 102 mEq/L (98-107)
[2020-03-22 07:03] LABS: BASOPHILS % 0.2 % (0.0-2.0); EOSINOPHILS % 0.2 % (0.0-5.0); HEMATOCRIT. 38.9 % (42.0-52.0); HEMOGLOBIN. 12.4 g/dL (14.0-18.0); LYMPHOCYTES % 15.4 % (20.0-50.0); MEAN CORPUSCULAR HEMOGLOBIN 26.5 pg (28.0-32.0); MEAN PLATELET VOLUME 7.7 fl (7.4-10.4); MONOCYTES % 10.4 % (2.0-8.0); NEUTROPHILS % 73.8 % (40.0-76.0); PLATELET 239 x1000/uL (130-400); RED BLOOD CELL COUNT 4.69 mill/uL (4.7-6.1); RED CELL DISTRIBUTION WIDTH 15.4 % (11.6-14.6)
[2020-03-22 08:00] VITALS: BP 115/78
[2020-03-22] MEDS: HEPARIN 5000 UNITS/ML VIAL SUBCUT SCH ×2 (09:36→21:03)
[2020-03-22] MEDS: FLUTICASONE/VILANTEROL 200-25 BLST.W.DEV ORI SCH (09:37)
[2020-03-22] MEDS: AZITHROMYCIN 500 MG in DEXT 5% WATER 250 ML IV SCH (10:05)
[2020-03-22] MEDS: DEXAMETHASONE 10 MG/ML VIAL IV SCH (10:05)
[2020-03-22 12:00] VITALS: BP 104/71
[2020-03-22 16:00] VITALS: BP 95/64
[2020-03-22] MEDS: CEFTRIAXONE 1,000 MG in DEXTROSE 5% WATER 50 ML IV SCH (17:49)
[2020-03-22] MEDS ORDERED: DIPHENHYDRAMINE 50MG/ML VIAL IV PRN (19:00)
[2020-03-22 20:00] VITALS: BP 114/75
[2020-03-23] VITALS (7 sets, daily range): BP systolic 91–142; BP diastolic 57–81
[2020-03-23] MEDS: ALBUTEROL 6.7GM HFA INHALER ORI SCH ×6 (04:00→20:39)
[2020-03-23] MEDS: BLOOD SUGAR DIAGNOSTIC STRIP TEST SCH ×4 (05:28→20:32)
[2020-03-23 05:45] LABS: BASOPHILS % 0.2 % (0.0-2.0); EOSINOPHILS % 0.1 % (0.0-5.0); HEMATOCRIT. 41.9 % (42.0-52.0); HEMOGLOBIN. 13.2 g/dL (14.0-18.0); LYMPHOCYTES % 12.5 % (20.0-50.0); MEAN CORPUSCULAR HEMOGLOBIN 26.6 pg (28.0-32.0); MEAN CORPUSCULAR VOLUME 84.2 fL (80.0-94.0); MEAN PLATELET VOLUME 7.8 fl (7.4-10.4); MONOCYTES % 8.5 % (2.0-8.0); NEUTROPHILS % 78.7 % (40.0-76.0); PLATELET 247 x1000/uL (130-400); RED BLOOD CELL COUNT 4.97 mill/uL (4.7-6.1); RED CELL DISTRIBUTION WIDTH 15.7 % (11.6-14.6)
[2020-03-23 05:57] LABS: CHLORIDE 105 mEq/L (98-107)
[2020-03-23] MEDS: INSULIN LISPRO 100 UNITS/ML SUBCUT SCH ×4 (07:10→20:41)
[2020-03-23] MEDS: FLUTICASONE/VILANTEROL 200-25 BLST.W.DEV ORI SCH (08:42)
[2020-03-23] MEDS: HEPARIN 5000 UNITS/ML VIAL SUBCUT SCH ×2 (08:43→20:43)
[2020-03-23] MEDS: DEXAMETHASONE 10 MG/ML VIAL IV SCH (09:26)
[2020-03-23] MEDS ORDERED: DIPHENHYDRAMINE 50MG/ML VIAL IV ONE (09:45)
[2020-03-23] MEDS ORDERED: DIPHENHYDRAMINE 50MG/ML VIAL IV NR (10:00)
[2020-03-23] MEDS: METHYLPREDNISOLONE SOD SUCC 125 MG/2 ML VIAL IV SCH (17:34)
[2020-03-23] MEDS: CEFTRIAXONE 1,000 MG in DEXTROSE 5% WATER 50 ML IV SCH (17:35)
[2020-03-24] VITALS: BP 108/65
[2020-03-24] MEDS: ALBUTEROL 6.7GM HFA INHALER ORI SCH ×7 (03:25→23:12)
[2020-03-24 04:00] VITALS: BP 111/72
[2020-03-24] MEDS: INSULIN LISPRO 100 UNITS/ML SUBCUT SCH ×4 (06:03→20:48)
[2020-03-24] MEDS: BLOOD SUGAR DIAGNOSTIC STRIP TEST SCH ×4 (06:03→20:31)
[2020-03-24] MEDS: METHYLPREDNISOLONE SOD SUCC 125 MG/2 ML VIAL IV SCH ×5 (06:09→23:11)
[2020-03-24 08:00] VITALS: BP 127/77
[2020-03-24] MEDS: FLUTICASONE/VILANTEROL 200-25 BLST.W.DEV ORI SCH (09:12)
[2020-03-24] MEDS: HEPARIN 5000 UNITS/ML VIAL SUBCUT SCH ×2 (09:14→20:43)
[2020-03-24 12:00] VITALS: BP 125/73
[2020-03-24 16:00] VITALS: BP 114/75
[2020-03-24] MEDS: ACETAMINOPHEN 325MG TABLET PO PRN (16:43)
[2020-03-24 20:00] VITALS: BP 115/77
[2020-03-25] VITALS: BP_SYST 124; BP_SYST 133; BP_DIAS 74; BP_DIAS 78
[2020-03-25 04:00] VITALS: BP 108/70
[2020-03-25] MEDS: ALBUTEROL 6.7GM HFA INHALER ORI SCH ×4 (05:08→22:20)
[2020-03-25] MEDS: METHYLPREDNISOLONE SOD SUCC 125 MG/2 ML VIAL IV SCH ×3 (05:08→17:02)
[2020-03-25] MEDS: BLOOD SUGAR DIAGNOSTIC STRIP TEST SCH ×4 (05:42→22:21)
[2020-03-25] MEDS: INSULIN LISPRO 100 UNITS/ML SUBCUT SCH ×4 (06:27→22:21)
[2020-03-25 08:00] VITALS: BP 99/56
[2020-03-25] MEDS: FLUTICASONE/VILANTEROL 200-25 BLST.W.DEV ORI SCH (08:17)
[2020-03-25] MEDS: HEPARIN 5000 UNITS/ML VIAL SUBCUT SCH ×2 (08:18→22:20)
[2020-03-25 12:00] VITALS: BP_SYST 127
[2020-03-25 16:00] VITALS: BP 117/73
[2020-03-25 20:00] VITALS: BP 123/68
[2020-03-26] VITALS: BP 134/77
[2020-03-26] MEDS: METHYLPREDNISOLONE SOD SUCC 125 MG/2 ML VIAL IV SCH ×3 (01:43→12:11)
[2020-03-26] MEDS: ALBUTEROL 6.7GM HFA INHALER ORI SCH ×5 (01:43→17:12)
[2020-03-26 04:00] VITALS: BP 121/72
[2020-03-26] MEDS: BLOOD SUGAR DIAGNOSTIC STRIP TEST SCH ×4 (05:46→20:52)
[2020-03-26 08:00] VITALS: BP 142/81
[2020-03-26] MEDS: HEPARIN 5000 UNITS/ML VIAL SUBCUT SCH ×2 (08:10→20:52)
[2020-03-26] MEDS: FLUTICASONE/VILANTEROL 200-25 BLST.W.DEV ORI SCH (08:11)
[2020-03-26] MEDS: INSULIN LISPRO 100 UNITS/ML SUBCUT SCH ×4 (08:13→20:52)
[2020-03-26 12:00] VITALS: BP 125/75
[2020-03-26 16:00] VITALS: BP 125/75
[2020-03-26] MEDS: PREDNISONE 20MG TABLET PO SCH (17:09)
[2020-03-26 20:00] VITALS: BP 140/79
[2020-03-27] VITALS: BP 134/75
[2020-03-27] MEDS: ALBUTEROL 6.7GM HFA INHALER ORI SCH ×4 (00:56→17:40)
[2020-03-27 04:00] VITALS: BP 137/74
[2020-03-27] MEDS: BLOOD SUGAR DIAGNOSTIC STRIP TEST SCH ×3 (06:11→16:10)
[2020-03-27] MEDS: PREDNISONE 20MG TABLET PO SCH ×2 (06:14→17:39)
[2020-03-27] MEDS: INSULIN LISPRO 100 UNITS/ML SUBCUT SCH ×3 (06:33→16:57)
[2020-03-27 07:28] LABS: HEMATOCRIT. 39.1 % (42.0-52.0); HEMOGLOBIN. 12.5 g/dL (14.0-18.0); MEAN CORPUSCULAR HEMOGLOBIN 26.9 pg (28.0-32.0); MEAN CORPUSCULAR VOLUME 84.3 fL (80.0-94.0); MEAN PLATELET VOLUME 8.5 fl (7.4-10.4); PLATELET 173 x1000/uL (130-400); RED BLOOD CELL COUNT 4.64 mill/uL (4.7-6.1); RED CELL DISTRIBUTION WIDTH 16.3 % (11.6-14.6)
[2020-03-27 07:34] LABS: CHLORIDE 104 mEq/L (98-107)
[2020-03-27 08:00] VITALS: BP 111/74
[2020-03-27] MEDS: FLUTICASONE/VILANTEROL 200-25 BLST.W.DEV ORI SCH (09:03)
[2020-03-27] MEDS: HEPARIN 5000 UNITS/ML VIAL SUBCUT SCH (09:03)
[2020-03-27 12:00] VITALS: BP 126/74
[2020-03-27 16:29] VITALS: BP 125/82
[2020-03-27 16:53] VITALS: BP 125/82
[2020-03-27 20:57] LABS: PLATELET ESTIMATE NORMAL
== END 2020-03-27 20:40 | DRG 871 ==
LOC: ER 13:06 → 7EST 17:58 → ENRESERV 20:02 → 7EST 03-19 16:32
PROVIDERS: ADMIT Internal Medicine; ATTEND Internal Medicine
DX: A41.89 Other specified sepsis (principal); U07.1 COVID-19; J96.21 Acute and chronic respiratory failure with hypoxia; J12.89 Other viral pneumonia; J96.22 Acute and chronic respiratory failure with hypercapnia; E87.1 Hypo-osmolality and hyponatremia; E87.2 Acidosis; I50.32 Chronic diastolic (congestive) heart failure; J44.0 Chronic obstructive pulmonary disease with (acute) lower respiratory infection; J44.1 Chronic obstructive pulmonary disease with (acute) exacerbation; I11.0 Hypertensive heart disease with heart failure; D64.9 Anemia, unspecified; F17.200 Nicotine dependence, unspecified, uncomplicated; L29.9 Pruritus, unspecified; J20.9 Acute bronchitis, unspecified; K21.9 Gastro-esophageal reflux disease without esophagitis; B97.89 Other viral agents as the cause of diseases classified elsewhere; T38.0X5A Adverse effect of glucocorticoids and synthetic analogues, initial encounter; E11.65 Type 2 diabetes mellitus with hyperglycemia; I95.9 Hypotension, unspecified; R00.0 Tachycardia, unspecified; R62.7 Adult failure to thrive; N40.0 Benign prostatic hyperplasia without lower urinary tract symptoms; Z79.01 Long term (current) use of anticoagulants; Z86.19 Personal history of other infectious and parasitic diseases; Z86.711 Personal history of pulmonary embolism; Z85.038 Personal history of other malignant neoplasm of large intestine; Z90.49 Acquired absence of other specified parts of digestive tract; Z82.5 Family history of asthma and other chronic lower respiratory diseases; Z87.01 Personal history of pneumonia (recurrent); Z93.3 Colostomy status; Z99.81 Dependence on supplemental oxygen; Z83.6 Family history of other diseases of the respiratory system; Y92.89 Other specified places as the place of occurrence of the external cause; Z68.22 Body mass index [BMI] 22.0-22.9, adult; Z79.899 Other long term (current) drug therapy
CPT/HCPCS: 36415; 36600; 71045; 80048; 80053; 82375; 82805; 82962; 83036; 83605; 83735; 83880; 84145; 84484; 85025; 87070; 87635; 93005; 94640; 96374; 99291; J0456; J0696; J1100; J1200; J1644; J1815; J2543; J2930; J3370; J7040; J7060; J7512

== ENCOUNTER 2021-02-28 22:12 | Inpatient (IN) | payer MEDICARE, MEDICAID ==
[~2021-02-28] VITALS: Ht 172.7 cm; Wt 64.1 kg
[~2021-02-28 22:12] MED LIST changes: +ALBU90AE IH; -APIX5TAB MT; +BENZ1LOZ60 PO; +CALC500T6 PO; +CHOL500010 PO; +CLON0.1T PO; +DOCU250C69 PO; -ERGO400T7 PO; +FAMO20TA8 PO; +FLUT1BLS IH; +GABA-529 PO; +GLUC1KIT IJ; +GLUC1KIT IM; +HYDR-4001 PO; +INSU100V37 SQ; +MELA10TA2 PO; +MIDO2.5T PO; +MOM PO; +MULT-1116 PO; -PRED10TA23 MT; +SODI45SP5 NS; +TOPUD PO; -TRAZ150T78 MT; +XAR15 MT
[2021-02-28] MEDS ORDERED: IPRATROPIUM BROMIDE (0.02%) 0.5MG/2.5ML NEB HHN NR (22:45)
[2021-02-28] MEDS ORDERED: MAGNESIUM 2 G PREMIX 50 ML IV NR (22:45)
[2021-02-28] MEDS ORDERED: METHYLPREDNISOLONE SOD SUCC 125 MG/2 ML VIAL IV NR (22:45)
[2021-02-28 23:03] LABS: BASOPHILS % 1.1 % (0.0-2.0); EOSINOPHILS % 7.1 % (0.0-5.0); HEMATOCRIT. 34.5 % (42.0-52.0); HEMOGLOBIN. 10.7 g/dL (14.0-18.0); LYMPHOCYTES % 15.3 % (20.0-50.0); MEAN CORPUSCULAR HEMOGLOBIN 24.9 pg (28.0-32.0); MONOCYTES % 6.1 % (2.0-8.0); NEUTROPHILS % 70.4 % (40.0-76.0); PLATELET 447 x1000/uL (130-400); RED BLOOD CELL COUNT 4.31 mill/uL (4.7-6.1); RED CELL DISTRIBUTION WIDTH 21.6 % (11.6-14.6)
[2021-02-28] MEDS: ALBUTEROL (0.083%) 2.5MG/3ML NEB HHN SCH (23:08)
[2021-02-28 23:10] LABS: CHLORIDE 103 mEq/L (98-107)
[2021-02-28] MEDS ORDERED: CEFTRIAXONE 1 G PREMIX 50 ML IV ONE (23:30)
[2021-02-28] MEDS ORDERED: VANCOMYCIN 1 G PREMIX 200 ML IV SCH (23:30)
[2021-03-01] MEDS ORDERED: SODIUM CHLORIDE 0.9% 1,000 ML IV NR (00:30)
[2021-03-01] MEDS ORDERED: SODIUM CHLORIDE 0.9% 1,000 ML IV ONE (00:30)
[2021-03-01] MEDS ORDERED: HEPARIN 5000 UNITS/ML VIAL IV PRN ×2 (02:00)
[2021-03-01] MEDS ORDERED: HEPARIN 5000 UNITS/ML VIAL IV SCH (02:00)
[2021-03-01] MEDS ORDERED: HEPARIN 25,000 UNITS PREMIX 250 ML IV PRN (02:00)
[2021-03-01] MEDS ORDERED: IOHEXOL-300 100 ML BOTTLE ONE (02:12)
[2021-03-01] MEDS ORDERED: MORPHINE SULFATE 4 MG/ML CPJ (NOT FOR IM USE) IV ONE (02:45)
[2021-03-01 03:10] LABS: PARTIAL THROMBOPLASTIN TIME 23.7 sec (23.4-31.0)
[2021-03-01] MEDS ORDERED: HEPARIN 25,000 UNITS PREMIX 250 ML IV SCH (04:00)
[2021-03-01] MEDS ORDERED: HEPARIN BOLUS PRN aPTT <36 IV (04:00)
[2021-03-01] MEDS ORDERED: HEPARIN 80 UNITS/KG BOLUS IV NR (04:00)
[2021-03-01] MEDS ORDERED: HEPARIN BOLUS PRN aPTT 37-44 IV (04:00)
[2021-03-01] MEDS ORDERED: ONDANSETRON HCL 4MG/2ML INJ IV PRN (09:45)
[2021-03-01] MEDS ORDERED: ACETAMINOPHEN 325MG TABLET PO PRN (09:45)
[2021-03-01 10:00] VITALS: BP 143/90
[2021-03-01 12:00] VITALS: BP 147/94
[2021-03-01 12:23] LABS: BG BASE EXCESS 5.6 mmol/L (-2.0-2.0); BG DEOXYHEMOGLOBIN 0.6 % (0.0-5.0); BG FRACTION INSPIRED OXYGEN 100; BG METHEMOGLOBIN 0.2 % (0.0-1.5); BG OXYGEN SATURATION 99.4 % (92.0-98.5); BG OXYHEMOGLOBIN 99.2 % (94.0-97.0); BG PO2 314.4 mmHg (75.0-100.0); BG TOTAL HEMOGLOBIN 10.5 g/dL (12.0-18.0); BG VENT MODE MASK - NRB
[2021-03-01] MEDS ORDERED: PNEUMOCOCCAL 23-VAL P-SAC VAC 0.5 ML IM ONE (12:45)
[2021-03-01] MEDS ORDERED: ENOXAPARIN 80MG/0.8ML SYR SUBCUT SCH (13:00)
[2021-03-01] MEDS: METHYLPREDNISOLONE SOD SUCC 40 MG/ML VIAL IV SCH ×2 (13:26→23:57)
[2021-03-01] MEDS: PIPERACILLIN/TAZOBACTAM 3.375 G in DEXTROSE 5% WATER 50 ML IV SCH ×2 (13:26→23:57)
[2021-03-01] MEDS: IPRATROPIUM/ALBUTEROL 0.5-3(2.5)MG/3ML NEB HHN SCH ×3 (14:21→21:40)
[2021-03-01 15:59] LABS: BG CARBOXYHEMOGLOBIN 0.3 % (0.5-1.5); BG DEOXYHEMOGLOBIN 3.7 % (0.0-5.0); BG FRACTION INSPIRED OXYGEN 32; BG METHEMOGLOBIN 0.3 % (0.0-1.5); BG OXYGEN SATURATION 96.3 % (92.0-98.5); BG OXYHEMOGLOBIN 95.7 % (94.0-97.0); BG PCO2 53.3 mmHg (35.0-45.0); BG PH 7.383 (7.350-7.450); BG PO2 86.1 mmHg (75.0-100.0); BG TOTAL HEMOGLOBIN 10.1 g/dL (12.0-18.0); BG VENT MODE NASAL CANNULA
[2021-03-01 16:00] VITALS: BP 115/50
[2021-03-01] MEDS ORDERED: LACTULOSE 20G/30ML UDC PO NR (16:30)
[2021-03-01] MEDS: HYDROCODONE/ACETAMINOPHEN 10/325MG TABLET PO PRN (16:46)
[2021-03-01] MEDS: MONTELUKAST SODIUM 10MG TABLET PO SCH (17:38)
[2021-03-01] MEDS: FAMOTIDINE 20MG TABLET PO SCH (20:30)
[2021-03-01] MEDS: ENOXAPARIN 60MG/0.6ML SYR SUBCUT SCH (20:31)
[2021-03-02] MEDS: IPRATROPIUM/ALBUTEROL 0.5-3(2.5)MG/3ML NEB HHN SCH ×6 (01:17→21:22)
[2021-03-02 04:00] VITALS: BP 95/62
[2021-03-02] MEDS: METHYLPREDNISOLONE SOD SUCC 40 MG/ML VIAL IV SCH ×3 (06:00→21:01)
[2021-03-02] MEDS: PIPERACILLIN/TAZOBACTAM 3.375 G in DEXTROSE 5% WATER 50 ML IV SCH ×3 (06:00→21:01)
[2021-03-02 06:23] LABS: HEMOGLOBIN. 8.8 g/dL (14.0-18.0); MEAN CORPUSCULAR HEMOGLOBIN 25.1 pg (28.0-32.0); MEAN CORPUSCULAR VOLUME 79.8 fL (80.0-94.0); MEAN PLATELET VOLUME 7.7 fl (7.4-10.4); PLATELET 368 x1000/uL (130-400); RED BLOOD CELL COUNT 3.51 mill/uL (4.7-6.1); RED CELL DISTRIBUTION WIDTH 21.5 % (11.6-14.6)
[2021-03-02 06:45] LABS: CHLORIDE 102 mEq/L (98-107)
[2021-03-02 08:00] VITALS: BP 112/68
[2021-03-02] MEDS: ENOXAPARIN 60MG/0.6ML SYR SUBCUT SCH ×2 (08:22→21:09)
[2021-03-02 12:00] VITALS: BP 113/70
[2021-03-02 13:55] LABS: PLATELET ESTIMATE NORMAL
[2021-03-02] MEDS ORDERED: NALOXONE HCL 0.4MG/ML VIAL IV PRN (15:00)
[2021-03-02 16:00] VITALS: BP 116/72
[2021-03-02] MEDS: MONTELUKAST SODIUM 10MG TABLET PO SCH (16:39)
[2021-03-02 20:00] VITALS: BP 112/66
[2021-03-02] MEDS: HYDROCODONE/ACETAMINOPHEN 10/325MG TABLET PO PRN (21:01)
[2021-03-02] MEDS: FAMOTIDINE 20MG TABLET PO SCH (21:01)
[2021-03-03] VITALS (7 sets, daily range): BP systolic 115–148; BP diastolic 69–86
[2021-03-03] MEDS: IPRATROPIUM/ALBUTEROL 0.5-3(2.5)MG/3ML NEB HHN SCH ×5 (00:49→15:29)
[2021-03-03] MEDS: HYDROCODONE/ACETAMINOPHEN 10/325MG TABLET PO PRN ×2 (03:06→17:31)
[2021-03-03] MEDS: METHYLPREDNISOLONE SOD SUCC 40 MG/ML VIAL IV SCH ×2 (05:13→13:52)
[2021-03-03] MEDS: PIPERACILLIN/TAZOBACTAM 3.375 G in DEXTROSE 5% WATER 50 ML IV SCH ×2 (05:13→13:52)
[2021-03-03] MEDS ORDERED: THROAT LOZENGES-BENZOCAINE/MENTH/CETYLPYRD CL LOZENGES MM PRN (05:30)
[2021-03-03] MEDS ORDERED: GUAIFENESIN-DM 200MG-20MG/10ML UDC PO PRN (05:30)
[2021-03-03] MEDS: ENOXAPARIN 60MG/0.6ML SYR SUBCUT SCH (08:07)
[2021-03-03] MEDS: MONTELUKAST SODIUM 10MG TABLET PO SCH (16:48)
[2021-03-03] MEDS ORDERED: METHYLPREDNISOLONE SOD SUCC 40 MG/ML VIAL IV SCH (21:00)
== END 2021-03-03 19:30 | DRG 871 ==
LOC: ER 22:12 → MICUSO 03-01 01:39 → EDBEDREQ 03-01 01:41 → EDBEDREQTM 03-01 01:41 → EDBEDREQDT 03-01 01:41 → 8WST 03-01 07:20
PROVIDERS: ADMIT Family Medicine Adult Medicine; ATTEND Family Medicine Adult Medicine
DX: A41.9 Sepsis, unspecified organism (principal); J96.22 Acute and chronic respiratory failure with hypercapnia; I26.99 Other pulmonary embolism without acute cor pulmonale; E43 Unspecified severe protein-calorie malnutrition; I50.32 Chronic diastolic (congestive) heart failure; J44.1 Chronic obstructive pulmonary disease with (acute) exacerbation; E11.9 Type 2 diabetes mellitus without complications; D64.9 Anemia, unspecified; K21.9 Gastro-esophageal reflux disease without esophagitis; I11.0 Hypertensive heart disease with heart failure; K56.41 Fecal impaction; Z82.5 Family history of asthma and other chronic lower respiratory diseases; Z86.16 Personal history of COVID-19; Z86.711 Personal history of pulmonary embolism; Z93.3 Colostomy status; Z90.49 Acquired absence of other specified parts of digestive tract; Z87.891 Personal history of nicotine dependence; Z68.21 Body mass index [BMI] 21.0-21.9, adult; Z79.899 Other long term (current) drug therapy
CPT/HCPCS: 36415; 36600; 71045; 74177; 80048; 80053; 82375; 82805; 83605; 83880; 84484; 85025; 93005; 94640; 99285; J0696; J1644; J1650; J2270; J2543; J2920; J2930; J3370; J3475; J7060; Q9967

== ENCOUNTER 2021-03-19 18:48 | Inpatient (IN) | payer MEDICARE, MEDICAID ==
[~2021-03-19] VITALS: Ht 182.9 cm; Wt 60.3 kg
[~2021-03-19 18:48] MED LIST changes: -GLUC1KIT IJ
[2021-03-19] MEDS ORDERED: SODIUM CHLORIDE 0.9% 1,000 ML IV ONE (19:30)
[2021-03-19 19:43] LABS: BASOPHILS % 0.5 % (0.0-2.0); EOSINOPHILS % 7.4 % (0.0-5.0); HEMATOCRIT. 37.3 % (42.0-52.0); HEMOGLOBIN. 11.1 g/dL (14.0-18.0); LYMPHOCYTES % 23.6 % (20.0-50.0); MEAN CORPUSCULAR HEMOGLOBIN 24.4 pg (28.0-32.0); MEAN PLATELET VOLUME 8.5 fl (7.4-10.4); MONOCYTES % 6.2 % (2.0-8.0); NEUTROPHILS % 62.3 % (40.0-76.0); PLATELET 242 x1000/uL (130-400); RED BLOOD CELL COUNT 4.55 mill/uL (4.7-6.1); RED CELL DISTRIBUTION WIDTH 20.7 % (11.6-14.6)
[2021-03-19 19:46] LABS: CHLORIDE 101 mEq/L (98-107)
[2021-03-19 19:48] LABS: CLARITY URINE CLEAR (CLEAR); COLOR URINE YELLOW (YELLOW); KETONES URINE NEGATIVE (NEGATIVE); LEUKOCYTE ESTERASE URINE NEGATIVE (NEGATIVE); NITRITE URINE NEGATIVE (NEGATIVE); OCCULT BLOOD URINE 1+ (NEGATIVE); PROTEIN URINE 3+ (NEGATIVE); SPECIFIC GRAVITY URINE 1.023 (1.005-1.030); UROBILINOGEN URINE 0.2 E.U./dL (0.2-1.0)
[2021-03-19 19:51] LABS: ETHANOL BLOOD < 10 mg/dL
[2021-03-19 19:57] LABS: *AMPHETAMINES SCREEN URINE NEGATIVE (NEGATIVE); *BARBITURATES SCREEN URINE NEGATIVE (NEGATIVE); *BENZODIAZEPINES SCREEN URINE NEGATIVE (NEGATIVE); *COCAINE SCREEN URINE NEGATIVE (NEGATIVE)
[2021-03-19 19:58] LABS: CANNABINOID URINE SCREEN NEGATIVE (NEGATIVE); METHADONE URINE SCREEN NEGATIVE (NEGATIVE); OPIATES URINE SCREEN NEGATIVE (NEGATIVE); PHENCYCLIDINE URINE SCREEN NEGATIVE (NEGATIVE)
[2021-03-19] MEDS ORDERED: ALBUTEROL (0.083%) 2.5MG/3ML NEB HHN STA (19:59)
[2021-03-19] MEDS ORDERED: IPRATROPIUM BROMIDE (0.02%) 0.5MG/2.5ML NEB HHN STA (19:59)
[2021-03-19] MEDS ORDERED: METHYLPREDNISOLONE SOD SUCC 125 MG/2 ML VIAL IV ONE (20:00)
[2021-03-19 20:59] LABS: BG BASE EXCESS -4.6 mmol/L (-2.0-2.0); BG CARBOXYHEMOGLOBIN 0.3 % (0.5-1.5); BG DEOXYHEMOGLOBIN 0.3 % (0.0-5.0); BG FRACTION INSPIRED OXYGEN 60; BG METHEMOGLOBIN 0.3 % (0.0-1.5); BG OXYGEN SATURATION 99.7 % (92.0-98.5); BG OXYHEMOGLOBIN 99.1 % (94.0-97.0); BG PCO2 92.6 mmHg (35.0-45.0); BG PH 7.082 (7.350-7.450); BG PO2 359.2 mmHg (75.0-100.0); BG SAMPLE SITE RIGHT RADIAL; BG TOTAL HEMOGLOBIN 11.3 g/dL (12.0-18.0); BG VENT MODE COOL AEROSOL
[2021-03-19] MEDS ORDERED: VANCOMYCIN 1 G PREMIX 200 ML IV NR (21:30)
[2021-03-19] MEDS ORDERED: PIPERACILLIN/TAZ 3.375G PREMIX 50 ML IV NR (21:30)
[2021-03-20] VITALS (7 sets, daily range): BP systolic 104–148; BP diastolic 46–92
[2021-03-20 00:19] LABS: BG BASE EXCESS 0.8 mmol/L (-2.0-2.0); BG CARBOXYHEMOGLOBIN 0.6 % (0.5-1.5); BG FRACTION INSPIRED OXYGEN 40; BG HCO3 ACT 29.8 mmol/L (22.0-26.0); BG METHEMOGLOBIN 0.2 % (0.0-1.5); BG OXYHEMOGLOBIN 97.2 % (94.0-97.0); BG PCO2 71.9 mmHg (35.0-45.0); BG PH 7.235 (7.350-7.450); BG PO2 108.7 mmHg (75.0-100.0); BG SAMPLE SITE RIGHT RADIAL; BG TOTAL HEMOGLOBIN 11.6 g/dL (12.0-18.0); BG VENT MODE MASK - BIPAP
[2021-03-20] MEDS ORDERED: DOCUSATE SODIUM 100MG CAPSULE PO PRN (01:00)
[2021-03-20] MEDS ORDERED: ONDANSETRON HCL 4MG/2ML INJ IV PRN ×2 (01:00→08:15)
[2021-03-20] MEDS ORDERED: CLONIDINE 0.1MG TABLET PO PRN (01:00)
[2021-03-20] MEDS ORDERED: DIPHENHYDRAMINE 50MG/ML VIAL IV PRN (01:00)
[2021-03-20] MEDS ORDERED: ACETAMINOPHEN 325MG TABLET PO PRN (01:00)
[2021-03-20] MEDS ORDERED: PIPERACILLIN/TAZOBACTAM 3.375GM/50ML PREMIX IV SCH (06:00)
[2021-03-20] MEDS ORDERED: PIPERACILLIN/TAZOBACTAM 3.375G in DEXT 5% WATER 50ML IV SCH ×2 (06:00→14:00)
[2021-03-20] MEDS: IPRATROPIUM/ALBUTEROL 0.5-3(2.5)MG/3ML NEB HHN SCH ×2 (06:02→20:27)
[2021-03-20 06:03] LABS: HEMATOCRIT. 39.3 % (42.0-52.0); HEMOGLOBIN. 11.8 g/dL (14.0-18.0); MEAN CORPUSCULAR HEMOGLOBIN 24.9 pg (28.0-32.0); MEAN CORPUSCULAR VOLUME 82.6 fL (80.0-94.0); MEAN PLATELET VOLUME 7.8 fl (7.4-10.4); PLATELET 225 x1000/uL (130-400); RED BLOOD CELL COUNT 4.75 mill/uL (4.7-6.1); RED CELL DISTRIBUTION WIDTH 20.8 % (11.6-14.6)
[2021-03-20 06:13] LABS: CHLORIDE 103 mEq/L (98-107)
[2021-03-20] MEDS ORDERED: PIPERACILLIN/TAZ 3.375G PREMIX 50 ML IV NR (06:15)
[2021-03-20 07:41] LABS: PLATELET ESTIMATE NORMAL
[2021-03-20] MEDS ORDERED: MAGNESIUM/ALUMINUM HYDROXIDE/SIMETHICONE 30ML UDC PO PRN (08:15)
[2021-03-20] MEDS ORDERED: HYDROCODONE/ACETAMINOPHEN 5/325MG TABLET PO PRN (08:15)
[2021-03-20 08:46] LABS: BG BASE EXCESS 3.8 mmol/L (-2.0-2.0); BG CARBOXYHEMOGLOBIN 0.9 % (0.5-1.5); BG DEOXYHEMOGLOBIN 2.4 % (0.0-5.0); BG FRACTION INSPIRED OXYGEN 40; BG METHEMOGLOBIN 0.2 % (0.0-1.5); BG OXYGEN SATURATION 97.6 % (92.0-98.5); BG OXYHEMOGLOBIN 96.5 % (94.0-97.0); BG PCO2 60.2 mmHg (35.0-45.0); BG PO2 92.6 mmHg (75.0-100.0); BG SAMPLE SITE RIGHT RADIAL; BG TOTAL HEMOGLOBIN 11.6 g/dL (12.0-18.0); BG VENT MODE MASK - BIPAP
[2021-03-20] MEDS ORDERED: ENOXAPARIN 40MG/0.4ML SYR SUBCUT SCH (09:00)
[2021-03-20] MEDS ORDERED: PANTOPRAZOLE SODIUM 40 MG/VIAL IV SCH (10:00)
[2021-03-20] MEDS ORDERED: DEXTROSE 50% WATER 50ML SYRINGE IV PRN (12:30)
[2021-03-20] MEDS: METHYLPREDNISOLONE SOD SUCC 40 MG/ML VIAL IV SCH ×2 (12:57→21:35)
[2021-03-20] MEDS: BLOOD SUGAR DIAGNOSTIC STRIP TEST SCH ×3 (12:59→21:35)
[2021-03-20] MEDS: INSULIN LISPRO 100 UNITS/ML SUBCUT SCH ×3 (12:59→21:42)
[2021-03-20] MEDS: PIPERACILLIN/TAZOBACTAM 3.375G in DEXT 5% WATER 50ML IV SCH ×2 (16:32→21:35)
[2021-03-20] MEDS: ENOXAPARIN 80MG/0.8ML SYR SUBCUT SCH (18:56)
[2021-03-20] MEDS ORDERED: ENOXAPARIN 80MG/0.8ML SYR SUBCUT SCH (19:00)
[2021-03-20 20:44] LABS: INR 1.1; PROTHROMBIN TIME 11.8 sec (9.6-11.0)
[2021-03-20] MEDS: FLUTICASONE PROPIONATE 50MCG/SPRAY BOTTLE BOTHNSTRLS SCH (21:36)
[2021-03-21] VITALS (12 sets, daily range): BP systolic 106–129; BP diastolic 60–76
[2021-03-21] MEDS: IPRATROPIUM/ALBUTEROL 0.5-3(2.5)MG/3ML NEB HHN SCH ×6 (00:19→20:24)
[2021-03-21] MEDS: METHYLPREDNISOLONE SOD SUCC 40 MG/ML VIAL IV SCH ×3 (05:23→21:28)
[2021-03-21] MEDS: PIPERACILLIN/TAZOBACTAM 3.375G in DEXT 5% WATER 50ML IV SCH ×3 (05:23→21:29)
[2021-03-21 06:20] LABS: CHLORIDE 101 mEq/L (98-107)
[2021-03-21 06:30] LABS: LDL CHOLESTEROL 68 mg/dL (5-100); PHOSPHORUS 1.8 mg/dL (2.5-4.9)
[2021-03-21 06:31] LABS: CREATINE KINASE 75 IU/L (39-308)
[2021-03-21 06:32] LABS: HDL CHOLESTEROL 72 mg/dL (40-59)
[2021-03-21 07:02] LABS: BASOPHILS % 0.3 % (0.0-2.0); LYMPHOCYTES % 8.3 % (20.0-50.0); MEAN CORPUSCULAR HEMOGLOBIN 25.3 pg (28.0-32.0); MEAN CORPUSCULAR VOLUME 80.6 fL (80.0-94.0); MEAN PLATELET VOLUME 8.9 fl (7.4-10.4); MONOCYTES % 3.3 % (2.0-8.0); NEUTROPHILS % 88.1 % (40.0-76.0); PLATELET 230 x1000/uL (130-400); RED BLOOD CELL COUNT 3.97 mill/uL (4.7-6.1); RED CELL DISTRIBUTION WIDTH 20.4 % (11.6-14.6)
[2021-03-21] MEDS: BLOOD SUGAR DIAGNOSTIC STRIP TEST SCH ×4 (07:36→21:29)
[2021-03-21] MEDS: ENOXAPARIN 80MG/0.8ML SYR SUBCUT SCH (09:37)
[2021-03-21 09:38] LABS: BG BASE EXCESS 8.4 mmol/L (-2.0-2.0); BG CARBOXYHEMOGLOBIN 0.4 % (0.5-1.5); BG FRACTION INSPIRED OXYGEN 28; BG HCO3 ACT 34.7 mmol/L (22.0-26.0); BG OXYHEMOGLOBIN 95.6 % (94.0-97.0); BG PCO2 57.1 mmHg (35.0-45.0); BG PH 7.402 (7.350-7.450); BG PO2 81.1 mmHg (75.0-100.0); BG SAMPLE SITE RIGHT RADIAL; BG TOTAL HEMOGLOBIN 11.2 g/dL (12.0-18.0); BG VENT MODE NASAL CANNULA
[2021-03-21] MEDS: FLUTICASONE PROPIONATE 50MCG/SPRAY BOTTLE BOTHNSTRLS SCH ×2 (09:38→21:28)
[2021-03-21] MEDS: INSULIN LISPRO 100 UNITS/ML SUBCUT SCH ×4 (09:39→21:34)
[2021-03-21] MEDS: ENOXAPARIN 60MG/0.6ML SYR SUBCUT SCH (21:29)
[2021-03-22] VITALS (8 sets, daily range): BP systolic 98–140; BP diastolic 54–101
[2021-03-22] MEDS: IPRATROPIUM/ALBUTEROL 0.5-3(2.5)MG/3ML NEB HHN SCH ×4 (00:26→12:28)
[2021-03-22] MEDS: METHYLPREDNISOLONE SOD SUCC 40 MG/ML VIAL IV SCH ×2 (05:39→11:39)
[2021-03-22] MEDS: PIPERACILLIN/TAZOBACTAM 3.375G in DEXT 5% WATER 50ML IV SCH (05:39)
[2021-03-22] MEDS: BLOOD SUGAR DIAGNOSTIC STRIP TEST SCH ×2 (07:30→11:39)
[2021-03-22] MEDS: INSULIN LISPRO 100 UNITS/ML SUBCUT SCH ×2 (08:00→12:34)
[2021-03-22] MEDS: ENOXAPARIN 60MG/0.6ML SYR SUBCUT SCH (08:32)
[2021-03-22] MEDS: FLUTICASONE PROPIONATE 50MCG/SPRAY BOTTLE BOTHNSTRLS SCH (08:32)
[2021-03-22] MEDS ORDERED: FAMOTIDINE 20MG/2ML VIAL IV SCH (09:00)
[2021-03-22 10:19] LABS: HEMOGLOBIN. 10.3 g/dL (14.0-18.0); MEAN CORPUSCULAR HEMOGLOBIN 24.2 pg (28.0-32.0); MEAN CORPUSCULAR VOLUME 79.9 fL (80.0-94.0); MEAN PLATELET VOLUME 8.2 fl (7.4-10.4); PLATELET 237 x1000/uL (130-400); RED BLOOD CELL COUNT 4.25 mill/uL (4.7-6.1); RED CELL DISTRIBUTION WIDTH 20.1 % (11.6-14.6)
[2021-03-22 10:21] LABS: CHLORIDE 101 mEq/L (98-107)
[2021-03-22 14:31] LABS: PLATELET ESTIMATE NORMAL
== END 2021-03-22 17:30 | DRG 917 ==
LOC: ER 18:48 → 5EST 22:34 → EDBEDREQSVC 23:03 → EDBEDREQTM 23:03 → EDBEDREQ 23:03 → ENRESERV 03-20 07:38
PROVIDERS: ADMIT Urology; ATTEND Urology
PROC: 5A09357 Assistance with Respiratory Ventilation, Less than 24 Consecutive Hours, Continuous Positive Airway Pressure (ICD-10-PCS; principal; 2021-03-19)
PROC: 5A09357 Assistance with Respiratory Ventilation, Less than 24 Consecutive Hours, Continuous Positive Airway Pressure (ICD-10-PCS; 2021-03-20)
DX: T50.7X1A Poisoning by analeptics and opioid receptor antagonists, accidental (unintentional), initial encounter (principal); G93.41 Metabolic encephalopathy; J96.01 Acute respiratory failure with hypoxia; J96.02 Acute respiratory failure with hypercapnia; J84.9 Interstitial pulmonary disease, unspecified; E44.0 Moderate protein-calorie malnutrition; I50.32 Chronic diastolic (congestive) heart failure; N39.0 Urinary tract infection, site not specified; I82.411 Acute embolism and thrombosis of right femoral vein; I82.431 Acute embolism and thrombosis of right popliteal vein; J44.9 Chronic obstructive pulmonary disease, unspecified; Z20.822 Contact with and (suspected) exposure to COVID-19; K21.9 Gastro-esophageal reflux disease without esophagitis; D64.9 Anemia, unspecified; E11.9 Type 2 diabetes mellitus without complications; I11.0 Hypertensive heart disease with heart failure; Z86.16 Personal history of COVID-19; Z87.891 Personal history of nicotine dependence; Z93.3 Colostomy status; Z79.01 Long term (current) use of anticoagulants; Z99.81 Dependence on supplemental oxygen; Z79.899 Other long term (current) drug therapy; Z79.4 Long term (current) use of insulin; Z86.19 Personal history of other infectious and parasitic diseases; Y92.89 Other specified places as the place of occurrence of the external cause
CPT/HCPCS: 36415; 36600; 71045; 80048; 80053; 80061; 80305; 80307; 80320; 80329; 81003; 82140; 82375; 82550; 82805; 82962; 83036; 83605; 83735; 83880; 84100; 84443; 84484; 85025; 87426; 93005; 93970; 94660; 99291; C9113; J1650; J1815; J2543; J2920; J2930; J3370; J3490; J7030; J7060; G0480